=== PATIENT | female | born 1955 | race Caucasian/White ===

== ENCOUNTER 2016-09-02 12:47 | Observation (INO) ==
[2016-09-02 14:35] LABS: Basophils # 0.1 K/mcL (0.0-0.2); Eosinophils # 0.2 K/mcL (0.0-0.6); Eosinophils % 2.7 %; Hematocrit 45.9 % (35.3-44.9); Hemoglobin 14.8 g/dL (11.5-15.4); Immature Granulocytes % 0.3 % (0-4); Lymphocytes # 2.8 K/mcL (0.6-4.6); Lymphocytes % 35.5 %; Mean Corpuscular HGB Conc 32.2 g/dL (31.6-35.5); Mean Corpuscular Hemoglobin 28.3 pg (28.0-33.3); Mean Corpuscular Volume 87.8 fL (83.0-100.0); Mean Platelet Volume 9.5 fL (9.4-12.4); Monocytes # 0.7 K/mcL (0.0-1.3); Monocytes % 8.9 %; Neutrophils # 4.1 K/mcL (1.6-8.9); Platelet Count 550 K/mcL (140-400); Red Blood Count 5.23 M/mcL (3.82-4.97); Red Cell Distribution Width 12.4 % (11.5-14.5); Segmented Neutrophils % 51.6 %
[2016-09-02 14:47] LABS: BUN/Creatinine Ratio 10 (6-26); Blood Urea Nitrogen 10 mg/dL (7-20); Calcium 9.6 mg/dL (8.6-10.8); Carbon Dioxide 28 mEq/L (19-29); Chloride 95 mEq/L (98-109); Glucose 127 mg/dL (70-99); Osmolality,Calculated 279 (280-300); Potassium 3.9 mEq/L (3.5-4.5); Sodium 134 mEq/L (136-145); eGFR For African Americans > 60 (> 60); eGFR For Non-African Americans 57 (> 60)
--- NOTE | 2016-09-02 14:47 | Emergency Department Note ---
Disposition Clinical Impression: Shortness of breath, Elevated troponin Disposition: Admitted As Inpatient Condition: Fair Time of Disposition: 17:26 SOB HPI - General Chief Complaint: ED Shortness of Breath/Dyspnea Stated Complaint: SOB/High HR Time Seen by Provider: 09/02/16 14:02 Source: patient Mode of arrival: ambulatory Limitations: no limitations Nursing Notes Reviewed: Yes Vital Signs Reviewed: Yes - History of Present Illness Patient is a 61-year-old female with past medical history of hypertension, insomnia. She presents today due to shortness of breath. She states that she has been short of breath for the past month, it is suddenly worsened over the past day or 2. She is also been having issues with high blood pressure over the past month. Blood pressures have been as high as 180/90 at home. She was recently started on lisinopril 20 mg disease and her blood pressures are improving. However, this morning, she noted that she had a pulse in the 140s when she got up. She is having significant shortness of breath with walking. Denies any chest pain or discomfort, nausea, vomiting, fevers, abdominal pain, cough, URI symptoms. No cardiac history of stents, OK, stroke, no smoking history. - Related Data Home Medications Medication Instructions Recorded Confirmed Amitriptyline [Elavil] 25 mg PO HS 06/05/16 08/11/16 Duloxetine [Cymbalta] 30 mg PO DAILY 06/05/16 08/11/16 Estrogens, Conjugated [Premarin 1 appl VG 2XW 06/05/16 08/11/16 Cream] Fluticasone Propionate Nasal 1 spray NS DAILY PRN 06/05/16 08/11/16 [Flonase] Ibuprofen [Motrin] 600 mg PO Q8HR PRN 06/05/16 08/11/16 Omeprazole [PriLOSEC] 40 mg PO DAILY 06/05/16 08/11/16 HydrOXYzine Pamoate [Hydroxyzine 25 mg PO TID PRN 09/02/16 09/02/16 Pamoate] Hydrochlorothiazide 25 mg PO QAM 09/02/16 09/02/16 Lisinopril [Zestril] 20 mg PO QAM 09/02/16 09/02/16 Ranitidine HCl [Zantac] 300 mg PO HS 09/02/16 09/02/16 Allergies Allergy/AdvReac Type Severity Reaction Status Date / Time adhesive tape Allergy Rash Verified 08/11/16 12:47 Amoxicillin [From Augmentin] Allergy Headache Verified 08/11/16 12:47 ciprofloxacin [From Cipro] Allergy Nausea Verified 08/11/16 12:47 clavulanic acid Allergy Headache Verified 08/11/16 12:47 [From Augmentin] clindamycin Allergy Nausea Verified 08/11/16 12:47 codeine Allergy Itching Verified 08/11/16 12:47 hydrocortisone Allergy Rash Verified 08/11/16 12:47 [From Cortizone-10] Imipramine [From Tofranil] Allergy Rash Verified 08/11/16 12:47 metronidazole [From Metrogel] Allergy Itching Verified 08/11/16 12:47 Sulfa (Sulfonamide Allergy Rash Verified 08/11/16 12:47 Antibiotics) ultrasound gel Allergy Itching Uncoded 08/11/16 12:47 Constitutional: Denies: fever Eyes: Denies: eye pain ENT ED: Denies: ear pain Cardiovascular: Reports: dyspnea on exertion. Denies: chest pain, palpitations Respiratory: Reports: dyspnea. Denies: cough, wheezes, hemoptysis Gastrointestinal: Denies: as per HPI, abdominal pain, nausea, vomiting, diarrhea Genitourinary: Denies: urgency, dysuria, frequency, hematuria Musculoskeletal: Denies: back pain Integumentary: Denies: rash Neurological: Denies: headache Psychiatric: Denies: anxiety Endocrine: Reports: fatigue Past Medical History - Past Medical History Attestation: Yes The following information was validated with the patient. Medical history: Reports: arthritis, fibromyalgia, GERD, hepatitis, other Surgical history: Reports: cholecystectomy, orthopedic, other, other Psychiatric history: Reports: anxiety, depression - Social History Smoking Status: Former smoker Smokeless Tobacco Status: No Alcohol use: Reports: none Drug use: Reports: none Physical Exam - General Limitations: no limitations General appearance: alert, in no apparent distress - Head Head exam: atraumatic, normocephalic, normal inspection - Eye Eye exam: Present: normal appearance, PERRL, EOMI - ENT ENT exam: normal exam, normal oropharynx, mucous membranes moist - Neck Neck exam: Present: normal inspection, full ROM, trachea midline - Chest Chest inspection: Present: normal inspection, symmetric chest wall rise - Respiratory Respiratory exam: Present: normal lung sounds bilaterally - Cardiovascular Cardiovascular exam: Present: normal rhythm, tachycardia, normal heart sounds - Abdominal Exam Abdominal exam: Present: soft, Non-Tender. Absent: tenderness, distention, guarding, rebound, rigidity - Extremities Exam Extremities exam: Present: normal inspection, full ROM. Absent: tenderness, pedal edema - Back Exam Back exam: Present: normal inspection, full ROM. Absent: tenderness - Neurological Exam Neurological exam: Present: alert, oriented X3 - Psychiatric Psychiatric exam: Present: normal affect, normal mood - Skin Skin exam: Present: warm, dry, intact, normal color Course Course Narrative: Patient was tachycardic on presentation. Her oxygen saturation was also dipping down to 96% during conversation. Otherwise, she is not in any acute distress. The rest of her vitals were within normal limits. Physical exam shows clear lungs to auscultation bilaterally, heart tachycardic but regular rhythm, abdominal exam benign. Due to history of tachycardia, shortness of breath, clear lung exam, oxygen dipping down to 96%, EKG showing tachycardia with ST depression in V3, T-wave inversion in lead 3, there is concern for PE. We will obtain cardiac labs and a CTA to rule out PE. Patient was agreeable with this plan. 15:57 troponin elevated at 0.07. Patient given aspirin. Chest x-ray negative for any acute cardiopulmonary process. Currently waiting on CTA. 17:24 CTA was negative for PE. However, due to elevated troponin, continued shortness of breath, I am still concerned that the patient could have some other etiology such as pulmonary hypertension that could be causing her shortness of breath, nonspecific ST changes. I called cardiology and discussed the case, Dr. Marquez agreed admission for further trending of trops and echocardiogram was reasonable. WIll admit for further care. Chest X-Ray 09/02/16 13:37 IMPRESSION: No acute cardiopulmonary process. Stable chest x-ray. D/ / Rosalva Freeman MD / Rosalva Freeman MD Interpreting Provider: Rosalva Freeman MD Chest CTA 09/02/16 14:38 IMPRESSION: 1. No acute abnormalities are identified in the chest. Specifically, there are no findings of pulmonary embolism. 2. A few incidental findings above. D/ / Alessio Gonzalez MD / Alessio Gonzalez MD Interpreting Provider: Alessio Gonzalez MD Chest X-Ray 09/02/16 13:37 IMPRESSION: No acute cardiopulmonary process. Stable chest x-ray. D/ / Rosalva Freeman MD / Rosalva Freeman MD Interpreting Provider: Rosalva Freeman MD Vital Signs Temperature 97.9 F 09/02/16 12:55 Pulse Rate 110 09/02/16 12:55 Respiratory Rate 16 09/02/16 12:55 Blood Pressure 124/77 09/02/16 12:55 O2 Sat by Pulse Oximetry 98 09/02/16 12:55 Temperature 98.0 F 09/02/16 18:24 Pulse Rate 87 09/02/16 18:24 Respiratory Rate 16 09/02/16 18:24 Blood Pressure 139/82 09/02/16 18:24 O2 Sat by Pulse Oximetry 95 09/02/16 18:24 Oxygen Delivery Oxygen Delivery Room Air Shortness of Breath/Dyspnea - [facility] Narrative Medical decision making narrative: Patient was tachycardic on presentation. Her oxygen saturation was also dipping down to 96% during conversation. Otherwise, she is not in any acute distress. The rest of her vitals were within normal limits. Physical exam shows clear lungs to auscultation bilaterally, heart tachycardic but regular rhythm, abdominal exam benign. Due to history of tachycardia, shortness of breath, clear lung exam, oxygen dipping down to 96%, EKG showing tachycardia with ST depression in V3, T-wave inversion in lead 3, there is concern for PE. We will obtain cardiac labs and a CTA to rule out PE. Patient was agreeable with this plan. 15:57 troponin elevated at 0.07. Patient given aspirin. Chest x-ray negative for any acute cardiopulmonary process. Currently waiting on CTA. 17:24 CTA was negative for PE. However, due to elevated troponin, continued shortness of breath, I am still concerned that the patient could have some other etiology such as pulmonary hypertension that could be causing her shortness of breath, nonspecific ST changes. I called cardiology and discussed the case, Dr. Marquez agreed admission for further trending of trops and echocardiogram was reasonable. WIll admit for further care. - Medical Records Medical records reviewed: Yes I reviewed the patient's medical records. - Lab Data Lab results reviewed: Yes I reviewed the patient's lab results. Result diagrams: 09/02/16 14:15 09/02/16 14:15 Lab Results 09/02/16 09/02/16 09/02/16 Range/Units 14:15 14:15 14:15 WBC 7.8 (4.3-11.1) K/mcL RBC 5.23 H (3.82-4.97) M/mcL Hgb 14.8 (11.5-15.4) g/dL Hct 45.9 H (35.3-44.9) % MCV 87.8 (83.0-100.0) fL MCH 28.3 (28.0-33.3) pg MCHC 32.2 (31.6-35.5) g/dL RDW 12.4 (11.5-14.5) % Plt Count 550 H (140-400) K/mcL MPV 9.5 (9.4-12.4) fL Immature Gran % 0.3 (0-4) % Seg Neutrophils % 51.6 % Lymphocytes % 35.5 % Monocytes % 8.9 % Eosinophils % 2.7 % Basophils % 1.0 % Neutrophils # 4.1 (1.6-8.9) K/mcL Lymphocytes # 2.8 (0.6-4.6) K/mcL Monocytes # 0.7 (0.0-1.3) K/mcL Eosinophils # 0.2 (0.0-0.6) K/mcL Basophils # 0.1 (0.0-0.2) K/mcL Immature Plt Fraction 4.0 (1.1-6.1) % Sodium 134 L (136-145) mEq/L Potassium 3.9 (3.5-4.5) mEq/L Chloride 95 L (98-109) mEq/L Carbon Dioxide 28 (19-29) mEq/L BUN 10 (7-20) mg/dL Creatinine 1.00 (0.57-1.11) mg/dL Est GFR ( Amer) > 60 (> 60) Est GFR (Non-Af Amer) 57 L (> 60) BUN/Creatinine Ratio 10 (6-26) Glucose 127 H (70-99) mg/dL Calculated Osmolality 279 L (280-300) Calcium 9.6 (8.6-10.8) mg/dL Troponin I 0.07 H* (0-0.03) ng/mL B-Natriuretic Peptide (0-100) pg/mL 09/02/16 Range/Units 14:15 WBC (4.3-11.1) K/mcL RBC (3.82-4.97) M/mcL Hgb (11.5-15.4) g/dL Hct (35.3-44.9) % MCV (83.0-100.0) fL MCH (28.0-33.3) pg MCHC (31.6-35.5) g/dL RDW (11.5-14.5) % Plt Count (140-400) K/mcL MPV (9.4-12.4) fL Immature Gran % (0-4) % Seg Neutrophils % % Lymphocytes % % Monocytes % % Eosinophils % % Basophils % % Neutrophils # (1.6-8.9) K/mcL Lymphocytes # (0.6-4.6) K/mcL Monocytes # (0.0-1.3) K/mcL Eosinophils # (0.0-0.6) K/mcL Basophils # (0.0-0.2) K/mcL Immature Plt Fraction (1.1-6.1) % Sodium (136-145) mEq/L Potassium (3.5-4.5) mEq/L Chloride (98-109) mEq/L Carbon Dioxide (19-29) mEq/L BUN (7-20) mg/dL Creatinine (0.57-1.11) mg/dL Est GFR ( Amer) (> 60) Est GFR (Non-Af Amer) (> 60) BUN/Creatinine Ratio (6-26) Glucose (70-99) mg/dL Calculated Osmolality (280-300) Calcium (8.6-10.8) mg/dL Troponin I (0-0.03) ng/mL B-Natriuretic Peptide 11 (0-100) pg/mL - Radiology Data Radiology results reviewed: Yes I reviewed the patient's radiology results. Chest X-Ray 09/02/16 13:37 IMPRESSION: No acute cardiopulmonary process. Stable chest x-ray. D/ / Rsoalva Freeman MD / Rosalva Freeman MD Interpreting Provider: Rosalva Freeman MD Chest CTA 09/02/16 14:38 IMPRESSION: 1. No acute abnormalities are identified in the chest. Specifically, there are no findings of pulmonary embolism. 2. A few incidental findings above. D/ / Alessio Gonzalez MD / Alessio Gonzalez MD Interpreting Provider: Alessio Gonzalez MD - EKG Data EKG attestation: Yes I reviewed and interpreted this EKG. EKG results narrative: 09/02/2016 at 12:59. Sinus tachycardia. Rate 102. [place] interval 111. QTc 352. QRS 72. Normal axis. T-wave inversion in lead 3. ST depression in lead V3, T-wave inversion in lead V3. Also ST depression and T-wave inversion in V4, V5. Posterior EKG 09/02/2016 at 1405. Sinus tachycardia. Rate 102. [place] interval 113. QRS 79. QTC 381. No acute ST elevation or depression. S.B.A.R. - S.B.A.R. Situation: Demographics, MOA Background: Presenting Complaint, Relevant PMH, Meds, & Allergies Assessment: Vital Signs, Course and respsone to treatment, Exam Concerns, Patient/Family Expectation, Pertinant Lab Results, Outstanding Labs Recommendation: Barrier(s) to disposition, Recommendation based on pending studies, treatments, or consults S.B.A.R. Report Given to: Dr. Annamaria Mayorga Repor Time: 17:26 Attestation Statement - Attestation Attestation: I examined this patient and my medical decision-making was reviewed with the MIDWIFE/PA/Advanced Practice Nurse/Resident Physician. I agree with the documented findings, disposition and treatment plan as described except to the extent set forth below. Patient to the emergency department complaining of shortness of breath and high pulse. Sensation is recently started on high blood pressure medications. States she increased her lisinopril to 20 on her own. Her heart rate is now running high. He does not feel well. Lungs clear to auscultation. Heart tachycardia and regular. Plan. Cardiac workup. Cardiac workup that showed an elevated troponin. She is given aspirin. She is not having any chest pain. CTA to rule out PE. It is negative for PE. She will be admitted for further cardiac workup and imaging.
[2016-09-02] MEDS ORDERED: Aspirin 325 MG TABLET PO ONE (15:01)
[2016-09-02] MEDS ORDERED: 0.9 % Sodium Chloride 1,000 ML IVC ONE (15:58)
--- NOTE | 2016-09-02 19:57 | Electrocardiograph Report ---
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
[2016-09-02] MEDS ORDERED: Naloxone 0.4 MG/ML INJ IVP PRN (20:45)
[2016-09-02] MEDS ORDERED: Ondansetron 4 MG/2 ML VIAL IVP PRN (20:45)
[2016-09-02] MEDS ORDERED: hydrOXYzine pamoate 25 MG CAPSULE PO PRN (20:52)
[2016-09-02] MEDS ORDERED: Famotidine 20 MG TABLET PO SCH (21:00)
--- NOTE | 2016-09-02 21:06 | Internal Med History&Physical ---
<Isidra Roper - Last Filed: 09/02/16 22:10> Date of Encounter: 09/02/16 Time of Encounter: 20:00 Assessment and Plan (1) Elevated troponin Status: Acute 1 patient has been experiencing increasing shortness of breath with exertion as well as intermittent chest pain over the past month. First cardiac troponin in the ED was 0.07, patient was given aspirin case was discussed with Dr. Smith recommended admission and continued cycling of her troponins 2 Make NPO after midnight for possible stress in am. No caffeine or BB (2) Shortness of breath Status: Acute 1 patient has been using increasing shortness of breath and tachycardia for approximately 2 weeks. CTA performed which was negative for pulmonary embolism Patient's first cardiac troponin was elevated at 0.07 Will obtain cardiac echo will possibility of cardiac involvement 2 continue with oxygen to maintain SPO2 greater than 92% 3 continuous cardiac monitoring (3) STEFFEN (obstructive sleep apnea) Status: Acute 1 CPAP as needed at night (4) HTN (hypertension) Status: Acute 1 continue with lisinopril and hydrochlorothiazide goal is to maintain systolic less than 140 Qualifiers: Hypertension type: essential hypertension Qualified Code(s): I10 - Essential (primary) hypertension (5) DVT prophylaxis Status: Acute 1 [facility] Internal Medicine - H&P: HPI Chief complaint: SOB tachycardia Admitted From: Emergency Dept Plans for Post Hospital Care: Home History of present illness: Ms. Yun is a 61 year old female past medical history of hypertension and obstructive sleep apnea insomnia anxiety GERD. Agree the patient she has been experiencing increasing shortness of breath as well as intermittent chest pressure that has been occurring off and on for the past 3 weeks. The past 2 days she has noticed increased shortness of breath particularly on exertion. She also has been monitoring her blood pressure and heart rate at home and over the past month has noticed increase in her heart rate during ambulation. She states chest pressure this midsternal occurs mostly when she is at rest and resolves on its own. This morning she noted that she had a pulse in the 140s and was experiencing significant shortness of breath. She denies any chest pain discomfort nausea vomiting fever abdominal pains prior to returning distress of breath. She does not have a cardiac history she was a previous smoker her sister of MA at age 37 mother has a cardiac history of atrial fibrillation. 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 She presented to the ER with the above complaints. According to ER records upon presentation patient's heart rate was 110 her blood pressure was 124/77. Oxygen saturation was 98% but would drop down to 9596% EKG just shows tachycardia with some ST depression in V3 and T-wave inversion in V4 56. CTA was obtained to rule out possible PE which was negative. Troponin was elevated at 0.07 she was given aspirin. According to ER documentation the case was discussed with Dr. Smith who agreed with admission and further trending of troponins and echocardiogram. Patient has been admitted for further workup and evaluation.Presently the patient denies any CP or SOB, lung sounds are clear, regular heart rate, no rubs murmur or gallops noted . Presently hemodynmaically stable. Discussed case with Dr Fry who agrees with plan. Past Med Surg Social Fam HX - Past Medical History Medical history: arthritis, fibromyalgia, GERD, hepatitis, other Psychiatric history: anxiety, depression - Past Surgical History Surgical History: cholecystectomy, orthopedic, other, other - Social History Smoking Status: Former smoker Smokeless Tobacco Status: No Alcohol use: none Drug use: none - Family History Mother Living Status: Still Living Hx Family Cardiac Disorders: Yes (pace maker (irregular heart beat)) Father Living Status: Still Living Hx Family Respiratory Disorders: Yes Hx Family Cancer: Yes (lung cancer) Internal Medicine - H&P: Meds Amitriptyline [Elavil] 25 mg PO HS 06/05/16 [History] Duloxetine [Cymbalta] 30 mg PO DAILY 06/05/16 [History] Estrogens, Conjugated [Premarin Cream] 1 appl VG 2XW 06/05/16 [History] Fluticasone Propionate Nasal [Flonase] 1 spray NS DAILY PRN 06/05/16 [History] Ibuprofen [Motrin] 600 mg PO Q8HR PRN 06/05/16 [History] Omeprazole [PriLOSEC] 40 mg PO QAM 06/05/16 [History] HydrOXYzine Pamoate [Hydroxyzine Pamoate] 25 mg PO TID PRN 09/02/16 [History] Hydrochlorothiazide 25 mg PO QAM 09/02/16 [History] Lisinopril [Zestril] 20 mg PO QAM 09/02/16 [History] Ranitidine HCl [Zantac] 300 mg PO HS 09/02/16 [History] Aspirin 81 mg PO DAILY #30 tab.chew 09/03/16 [Rx] Atorvastatin [Lipitor] 40 mg PO HS #30 tablet 09/03/16 [Rx] Clopidogrel [Plavix] 75 mg PO DAILY #30 tablet 09/03/16 [Rx] HYDROcodone/Acet 5/325 mg [Rhine 5-325 mg] 1 tab PO Q6H PRN #15 tab 09/03/16 [Rx ] Metoprolol [Lopressor] 25 mg PO BID #60 tablet 09/03/16 [Rx] Allergies adhesive tape Allergy (Verified 08/11/16 12:47) Rash Amoxicillin [From Augmentin] Allergy (Verified 08/11/16 12:47) Headache ciprofloxacin [From Cipro] Allergy (Verified 08/11/16 12:47) Nausea clavulanic acid [From Augmentin] Allergy (Verified 08/11/16 12:47) Headache clindamycin Allergy (Verified 08/11/16 12:47) Nausea codeine Allergy (Verified 08/11/16 12:47) Itching hydrocortisone [From Cortizone-10] Allergy (Verified 08/11/16 12:47) Rash Imipramine [From Tofranil] Allergy (Verified 08/11/16 12:47) Rash metronidazole [From Metrogel] Allergy (Verified 08/11/16 12:47) Itching Sulfa (Sulfonamide Antibiotics) Allergy (Verified 08/11/16 12:47) Rash ultrasound gel Allergy (Uncoded 08/11/16 12:47) Itching All Systems PM: A 10-system review of systems was performed and is negative for pertinent findings except as documented above in the HPI. - Constitutional Constitutional: no chills, no fever(s), no night sweats - EENT Eyes: no change in vision, no discharge, no pain, no photophobia - Cardiovascular Cardiovascular ROS IM: chest pain, dyspnea, dyspnea on exertion, no diaphoresis , no lightheadedness, no palpitations, no syncope - Respiratory Respiratory: no cough, no dyspnea, no wheezing, no excessive phlegm production - Gastrointestinal Gastrointestinal: no abdominal pain, no diarrhea, no hematemesis, no hematochezia, no melena, no nausea, no vomiting - Genitourinary Genitourinary: no change in urinary stream, no dysuria, no flank pain, no hematuria - Musculoskeletal Musculoskeletal ROS IM: no numbness, no tingling - Integumentary Integumentary IM: no rash, no unusual bruising - Neurological Neurological ROS: no confusion, no convulsions, no focal weakness, no numbness, no tingling, no tremor(s) - Constitutional Vitals: Temp Pulse Resp BP Pulse Ox 98.0 F 87 16 139/82 95 09/02/16 18:24 09/02/16 18:24 09/02/16 18:24 09/02/16 18:24 09/02/16 18:24 General appearance: Present: A&O X 3 - Head Head exam: Present: atraumatic, normocephalic - Eye Eye exam: Present: PERRL, conjuntiva pink, sclera anicteric Pupils: Present: PERRL - Neck Neck exam general surgery: Present: supple, trachea midline. Absent: lymphadenopathy - Respiratory Respiratory exam: Present: CTAB. Absent: accessory muscle use, rales, rhonchi, wheezes - Cardiovascular Cardiovascular exam: Present: RRR, +S1, +S2. Absent: diastolic murmur, gallop, rubs, systolic murmur - GI/Abdominal GI/Abdominal exam: Present: normal bowel sounds, soft, no peritoneal signs. Absent: distended, tenderness - Extremities Exam Extremities exam: Present: warm, radial pulses palpable and symetrical. Absent : calf tenderness, cyanotic, pedal edema - Neurological Exam Neurological exam: Present: CN II-XII intact, oriented X3, no focal deficits. Absent: pronater drift, facial droop, speech deficit - Skin Skin exam: Present: dry, intact Internal Med - H&P Results - Labs CBC & Chem 7: 09/02/16 14:15 09/02/16 14:15 - EKG Data EKG comments: 09/02/16 21:[address] Fry. Noted ST depression in V# with T wave inversion in leads V4-6 - Diagnostic Studies Chest x-ray Additional comments: Chest X-Ray 09/02/16 13:37 IMPRESSION: No acute cardiopulmonary process. Stable chest x-ray. D/ / Rosalva Freeman MD / Rosalva Freeman MD Interpreting Provider: Rosalva Freeman MD Chest CTA 09/02/16 14:38 IMPRESSION: 1. No acute abnormalities are identified in the chest. Specifically, there are no findings of pulmonary embolism. 2. A few incidental findings above. D/ / Alessio Gonzalez MD / Alessio Gonzalez MD Interpreting Provider: Alessio Gonzalez MD <Pavel Elise R - Last Filed: 09/04/16 02:06> Internal Medicine - H&P: HPI History of present illness: Ms. Yun is a 61 year old female All Systems PM: A 10-system review of systems was performed and is negative for pertinent findings except as documented above in the HPI. - Constitutional Vitals: Temp Pulse Resp BP Pulse Ox 97.7 F 67 17 109/65 96 09/03/16 15:10 09/03/16 16:30 09/03/16 16:30 09/03/16 16:30 09/03/16 16:30 Internal Med - H&P Results - Labs CBC & Chem 7: 09/03/16 04:04 09/03/16 04:04 Labs: Short CBC 09/03/16 Range/Units 04:04 WBC 7.7 (4.3-11.1) K/mcL Hgb 13.6 (11.5-15.4) g/dL Hct 42.1 (35.3-44.9) % Plt Count 440 H (140-400) K/mcL Neutrophils # 3.5 (1.6-8.9) K/mcL BMP 09/03/16 04:04 Sodium 138 Potassium 3.9 Chloride 99 Carbon Dioxide 29 BUN 12 Creatinine 0.91 Glucose 102 H Calcium 9.0 Cardiac Enzymes 09/03/16 Range/Units 04:04 Troponin I 0.06 H* (0-0.03) ng/mL Liver Function 09/03/16 Range/Units 04:04 Total Bilirubin 0.4 (0.2-1.2) mg/dL Direct Bilirubin 0.1 (0.0-0.5) mg/dL AST 21 (5-34) Units/L ALT 20 (0-55) Units/L Alkaline Phosphatase 115 (38-126) Units/L Albumin 3.5 (3.5-5.0) g/dL - Attending Attestation I examined this patient and my medical decision-making was reviewed with the [employer] ATTENDANT/ Advanced Practice Nurse. I agree with the documented findings, disposition and treatment plan as described except to the extent set forth below. 61 Y/F with intermittent shortness of breath and chest pressure. EKG showed T- wave inversions in V3 to V6, with dynamic changes. CXR and CTA chest are negative. Troponin 0.07. ER provider discussed with nc manager, who did not recommend anticoagulation at this time. O/E: Cardiac: RRR; Lungs: Bilateral basal crackles heard. A/P: Cardiology consult; aspirin; trend troponins.
[2016-09-03 05:36] LABS: Basophils # 0.1 K/mcL (0.0-0.2); Basophils % 0.9 %; Eosinophils # 0.3 K/mcL (0.0-0.6); Eosinophils % 4.1 %; Hematocrit 42.1 % (35.3-44.9); Hemoglobin 13.6 g/dL (11.5-15.4); Immature Granulocytes % 0.3 % (0-4); Lymphocytes # 3.1 K/mcL (0.6-4.6); Lymphocytes % 39.5 %; Mean Corpuscular HGB Conc 32.3 g/dL (31.6-35.5); Mean Corpuscular Hemoglobin 28.4 pg (28.0-33.3); Mean Corpuscular Volume 87.9 fL (83.0-100.0); Mean Platelet Volume 9.8 fL (9.4-12.4); Monocytes # 0.8 K/mcL (0.0-1.3); Monocytes % 10.6 %; Neutrophils # 3.5 K/mcL (1.6-8.9); Platelet Count 440 K/mcL (140-400); Red Blood Count 4.79 M/mcL (3.82-4.97); Red Cell Distribution Width 12.3 % (11.5-14.5); Segmented Neutrophils % 44.6 %
[2016-09-03 05:50] LABS: BUN/Creatinine Ratio 13 (6-26); Blood Urea Nitrogen 12 mg/dL (7-20); Carbon Dioxide 29 mEq/L (19-29); Chloride 99 mEq/L (98-109); Chol/HDL Ratio 3.9 (0-4.9); Cholesterol 201 mg/dL (< 200); Glucose 102 mg/dL (70-99); HDL Cholesterol 52 mg/dL (40-59); LDL Cholesterol,Calculated 110 mg/dL (0-99); Osmolality,Calculated 286 (280-300); Potassium 3.9 mEq/L (3.5-4.5); Sodium 138 mEq/L (136-145); Triglycerides 196 mg/dL (< 150); eGFR For African Americans > 60 (> 60); eGFR For Non-African Americans > 60 (> 60)
[2016-09-03] MEDS ORDERED: *HR* Enoxaparin 40 MG/0.4 ML SYRINGE SQ SCH (07:00)
[2016-09-03] MEDS ORDERED: hydroCHLOROthiazide 25 MG TABLET PO SCH (09:00)
[2016-09-03] MEDS ORDERED: Lisinopril 20 MG TABLET PO SCH (09:00)
[2016-09-03] MEDS ORDERED: Aspirin 81 MG TAB.CHEW PO SCH (09:00)
--- NOTE | 2016-09-03 10:07 | Cardiology Consult Note ---
Date of Encounter: 09/03/16 Time of Encounter: 09:45 Assessment and Plan (1) NSTEMI (non-ST elevated myocardial infarction) Current Visit: Yes Status: Acute Patient complains of intermittent non anginal chest pain x3 weeks duration. Not associated with activity. Described as tightness, substernal sometimes located at left upper back, non radiating. EKG showed ST depressions in leads I-III, T wave inversions in leads V3-V6, transient changes. JULIÁN score: 3 Peak troponin .07, trending down. 30 pack year hx of smoking, quit in 2009. Triglycerides and LDL elevated, no cardiac Hx. Plan: Echo pending. ASA, simvastatin, metoprolol, Lovenox Plan for [facility] later today. (2) Elevated troponin Current Visit: Yes Status: Acute peak troponin .07, trending down. Plan as above. (3) Shortness of breath Current Visit: Yes Status: Acute increasing shortness of breath and tachycardia x2 weeks. Patient does have a 30 pack year smoking Hx, quit in 2009. She states she did have PFTs done outpatient by her PCP which she was told were normal. CTA negative for PE. Echo pending. continue cardiac monitoring (4) STEFFEN (obstructive sleep apnea) Current Visit: Yes Status: Acute Patient is compliant with CPAP at night. (5) HTN (hypertension) Current Visit: Yes Status: Acute BP controlled at this time. Continue Lisinopril and HCTZ Qualifiers: Hypertension type: essential hypertension Qualified Code(s): I10 - Essential (primary) hypertension Discussion w patient/family: The assessment and plan as outlined above was discussed with the patient and/or family members who expressed understanding and agreement. All questions were answered. Thank you for involving us in the care of your patient. Please call with any questions. History of Present Illness Consult date: 09/03/16 Requesting physician: Pavel Elise Consult reason: non anginal chest pain Chief complaint: chest pain and SOB History of present illness: Ms. Yun is a 61 year old female withPMHx of HTN, STEFFEN (compliant with CPAP) , insominia, anxiety, GERD, fibromyalgia. Patient was admitted to hospital yesterday with CC of non anginal CP x3 weeks duration. Her chest pain comes and goes, located Left upper back and sometimes sub sternal. She describes this chest pain as more of a tightness. Denies having a sharp/stabbing feeling. It is not associated with exertion or rest, and happens randomly. Patient also complains of increased shortness of breath compared to normal with simple activities such as walking across the parking lot. She denies any increased recent stress in her life. Currently on exam, she denies shortness of breath or current chest pain. Past Med Surg Social Fam HX - Past Medical History Medical history: arthritis, fibromyalgia, GERD, hepatitis, other Psychiatric history: anxiety, depression - Past Surgical History Surgical History: cholecystectomy, orthopedic, other, other - Social History Smoking Status: Former smoker Smokeless Tobacco Status: No Alcohol use: none Drug use: none - Family History Mother Living Status: Still Living Hx Family Cardiac Disorders: Yes (pace maker (irregular heart beat)) Father Living Status: Still Living Hx Family Respiratory Disorders: Yes Hx Family Cancer: Yes (lung cancer) Medications and Allergies Amitriptyline [Elavil] 25 mg PO HS 06/05/16 [History] Duloxetine [Cymbalta] 30 mg PO DAILY 06/05/16 [History] Estrogens, Conjugated [Premarin Cream] 1 appl VG 2XW 06/05/16 [History] Fluticasone Propionate Nasal [Flonase] 1 spray NS DAILY PRN 06/05/16 [History] Ibuprofen [Motrin] 600 mg PO Q8HR PRN 06/05/16 [History] Omeprazole [PriLOSEC] 40 mg PO QAM 06/05/16 [History] HydrOXYzine Pamoate [Hydroxyzine Pamoate] 25 mg PO TID PRN 09/02/16 [History] Hydrochlorothiazide 25 mg PO QAM 09/02/16 [History] Lisinopril [Zestril] 20 mg PO QAM 09/02/16 [History] Ranitidine HCl [Zantac] 300 mg PO HS 09/02/16 [History] Allergies adhesive tape Allergy (Verified 08/11/16 12:47) Rash Amoxicillin [From Augmentin] Allergy (Verified 08/11/16 12:47) Headache ciprofloxacin [From Cipro] Allergy (Verified 08/11/16 12:47) Nausea clavulanic acid [From Augmentin] Allergy (Verified 08/11/16 12:47) Headache clindamycin Allergy (Verified 08/11/16 12:47) Nausea codeine Allergy (Verified 08/11/16 12:47) Itching hydrocortisone [From Cortizone-10] Allergy (Verified 08/11/16 12:47) Rash Imipramine [From Tofranil] Allergy (Verified 08/11/16 12:47) Rash metronidazole [From Metrogel] Allergy (Verified 08/11/16 12:47) Itching Sulfa (Sulfonamide Antibiotics) Allergy (Verified 08/11/16 12:47) Rash ultrasound gel Allergy (Uncoded 08/11/16 12:47) Itching All Systems Review: A 10-system review of systems was performed and is negative for pertinent findings except as documented above in the HPI. - Constitutional Constitutional: chills, snoring, no fever(s), no headache(s), no lethargy - Cardiovascular Cardiovascular: as per HPI - Respiratory Respiratory: dyspnea, no cough, no wheezing - Gastrointestinal Gastrointestinal: no abdominal pain, no coffee ground emesis, no constipation - Neurological Neurological: no dizziness Physical Examination Vital Signs, Last 4 Hours Temp Pulse Resp BP Pulse Ox 09/03/16 08:15 96 09/03/16 07:09 98.1 F 87 14 129/87 96 General: Conversant, No Apparent Distress HEENT: Atraumatic, Normocephaly Neck: No JVD Cardiac: Reg Rate and Rhythm, Normal S1 and S2 Lungs: Normal Breath Sounds, No Wheeze, Rales, Rhonchi Neuro: Alert and responsive, No focal deficits noted Abdomen: Soft, Non-Tender Extremities: No Cyanosis, No Edema Results 09/03/16 04:04 09/03/16 04:04 Lab Results 09/02/16 09/03/16 09/03/16 21:26 04:04 04:04 WBC 7.7 Hgb 13.6 Hct 42.1 Plt Count 440 H Sodium Potassium Chloride Carbon Dioxide BUN Creatinine Glucose Calcium Troponin I 0.06 H* 0.06 H* 09/03/16 04:04 WBC Hgb Hct Plt Count Sodium 138 Potassium 3.9 Chloride 99 Carbon Dioxide 29 BUN 12 Creatinine 0.91 Glucose 102 H Calcium 9.0 Troponin I Consult Discharge Plan - Plan Referrals: Rhys Rausch MD [Primary Care Provider] - 09/11/16 3:15 pm
[2016-09-03 11:24] LABS: Alanine Aminotransferase 20 Units/L (0-55); Albumin 3.5 g/dL (3.5-5.0); Albumin/Globulin Ratio 1.1 (1.1-2.2); Alkaline Phosphatase 115 Units/L (38-126); Aspartate Amino Transferase 21 Units/L (5-34); Bilirubin,Direct 0.1 mg/dL (0.0-0.5); Bilirubin,Indirect 0.3 mg/dL (0.0-1.2); Bilirubin,Total 0.4 mg/dL (0.2-1.2); Globulin 3.2 g/dL (2.4-3.5); Total Protein 6.7 g/dL (6.0-8.3)
[2016-09-03] MEDS: Acetaminophen 325 MG TABLET PO PRN ×2 (11:54→18:11)
--- NOTE | 2016-09-03 13:03 | ECHO - Doppler Report ---
Echocardiogram Name: Kellee Yun Date of Study: 09/03/2016 Date: 1955 Ht: 66.0 in Medical Record#: [id number] Age: 61 Wt: 143.0 lb Gender: Female BSA: 1.73 Order #: [id number] Location: [facility] Room #: 3B37 Reading Physician: New Krishna DO, YUNI, MICHEAL SHARMA Gradall Operator: Ordering Physician: Isidra Roper CNP Primary Physician: Rhys Rausch M.D. Indications: Chest pain Impressions: LVEF 60-65%. Normal LV chamber size, wall thickness and function. Mild left ventricular diastolic dysfunction. Normal right ventricular structure and function. Unable to estimate RVSP due to lack of TR jet. No significant valvular dysfunction. Left Ventricular Wall Motion: Rest Echo Findings All wall segments showed normal motion. Findings: Study Quality * Technically adequate exam. ECG Findings * Normal sinus rhythm. Left Ventricle * LVEF 60-65%. * Normal LV chamber size, wall thickness and function. * Mild left ventricular diastolic dysfunction. Right Ventricle * Normal right ventricular structure and function. Left Atrium * Normal left atrial size. Right Atrium * Normal right atrial size. Interatrial Septum * Interatrial septum not well evaluated. Aortic Valve * Trileaflet aortic valve with normal function. * No aortic regurgitation. * No aortic stenosis. Mitral Valve * Normal mitral valve structure and function. * No mitral regurgitation. * No mitral stenosis. Tricuspid Valve * Normal tricuspid valve structure and function. * No significant tricuspid regurgitation. * Unable to estimate RVSP due to lack of TR jet. Pulmonic Valve * Pulmonic valve not well visualized. * No pulmonic regurgitation. Aorta * Normally sized aortic root. Pericardium * The pericardium appears normal. IVC * Normal IVC dimensions and inspiratory collapse. Pulmonary Artery * Normal visualized portions of the main pulmonary artery. History Hypertension Family History of CAD 12/03/15 a Previous Echo was performed. Measurements: BP: 129/ 87 2D Normal Values RVIDd: 2.60 cm <2.7 cm IVSd: 1.20 cm 0.6 - 1.0 cm LVIDd: 3.90 cm 3.7 - 5.6 cm LVPWd: 1.00 cm 0.6 - 1.1 cm LVIDs: 2.70 cm 1.5 - 3.6 cm AO: 2.40 cm < 4.0 cm LA: 2.50 cm 2.0 - 4.0cm %FS: 30.80 cm >25 % LA volume: 13 Mitral Valve Peak E:.63 m/sec Peak A:.70 m/sec E/A Ratio:0.9 Peak E' Lat Nikhil:9.85 cm/s Peak E' Med Nikhil:6.73 cm/s E/E' Lat Ratio:6.4 E/E' Med Ratio:9.4 Tricuspid Valve TV Regurg Peak Grad: 5.00mmHg TV Regurg Peak Nikhil: 1.15m/sec Updated by New Krishna DO, FACAnnalisa, ZACHARY, MICHEAL on 09/03/2016 12:57:39 PM electronically signed on 09/03/2016 12:58:40 PM with status of Final Wall Motion Vergara: 1=Normal, 2=Hypokinesis, 3=Akinesis, 4=Dyskinesis, 5=Aneurysmal, 6=Hyperkinetic, X=Not Visualized (Blank)=Missing
--- NOTE | 2016-09-03 13:13 | Electrocardiograph Report ---
[address] [place] [address] Test Date: 2016-09-02 Pat Name: Kellee Yun Department: 102 Room: 3B37 Gender: F Buttonhole Maker: : 1955 Requested By: Isidra Roper Order Number: [id number] Reading MD: Alon Machado MD Measurements Intervals [place] Rate: 102 P: 37 KS: 111 QRS: 52 QRSD: 72 T: -14 QT: 293 QTc: 352 Interpretive Statements SINUS TACHYCARDIA WITH SHORT [place] INTERVAL ANTEROLATERAL ISCHEMIA Electronically Signed On 09-03-2016 13:11:21 EDT by Alon Machado MD
[2016-09-03] MEDS ORDERED: Verapamil 5 MG/2 ML VIAL ONE (13:47)
[2016-09-03] MEDS ORDERED: Heparin 1,000 UNITS/500 mL NS 500 ML ONE (13:48)
[2016-09-03] MEDS ORDERED: *HR* Heparin 10,000 UNIT/10 ML VIAL ONE (13:48)
[2016-09-03] MEDS ORDERED: Nitroglycerin 1,000 MCG/10 ML VIAL IV ONE (13:48)
[2016-09-03] MEDS ORDERED: 0.9 % Sodium Chloride 1,000 ML ONE ×2 (13:48→14:03)
[2016-09-03] MEDS ORDERED: *HR* Midazolam HCl 2 MG/2 ML VIAL ONE (14:02)
[2016-09-03] MEDS ORDERED: *HR* FentaNYL (PF) 100 MCG/2 ML VIAL ONE (14:02)
[2016-09-03 14:05] LABS: INR 1.1; Prothrombin Time 11.8 Seconds (9.4-12.1)
--- NOTE | 2016-09-03 14:30 | Pre-Sedation Evaluation ---
Pre-sedation evaluation - Pre-sedation checklist Date of procedure: 09/03/16 Procedure: Left heart cath Recent Vitals: Last Vital Signs Temp 98.1 F 09/03/16 11:18 Pulse 90 09/03/16 11:18 Resp 14 09/03/16 11:18 BP 134/84 09/03/16 11:18 Pulse Ox 95 09/03/16 11:18 H&P (including ROS) documented in medical record: Yes Previous reaction to sedatives/anesthetics: No Dietary Status: NPO after Midnight Dentition: No loose teeth or bridges ASA Classification *see protocol: CLASS II-Mild systemic disease Plan of Care: Pt appropriate candidate for procedure/moderate/conscious sedation , Risks/benefits of procedure/sedation discussed w/ patient/family
--- NOTE | 2016-09-03 15:06 | Event Note ---
Date of Encounter: 09/03/16 Time of Encounter: 15:05 - Cardiology Event Note Mild troponin elevation, dynamic ECG changes. TTE: EF 60-65%, mild LVDD, normal wall motion LHC: mild, non-obstructive CAD. 15% pLAD, 15% mLCx, 15% pRCA. ? microvascular event. Recommend: Plavix 75 mg daily x1 month. Continue asa, statin, and betablocker. Education provided regarding care of right radial cath site. Follow-up with [facility] in 1-2 weeks, appointment coordinate with office via eCW. Discussed and reviewed with Dr. Marquez, Cardiology will sign-off. Plan communicated with primary service.
--- NOTE | 2016-09-03 16:15 | Discharge Summary ---
Date of Encounter: 09/03/16 Time of Encounter: 15:00 - Discharge Diagnosis (1) Elevated troponin Priority: Primary Status: Acute Comments: Unclear causation but given that she had EKG changes, consistent with an NSTEMI. Heart catheter revealing mild, nonobstructive CAD. Started on aspirin , beta jose, statin and will give Plavix 1 month. (2) NSTEMI (non-ST elevated myocardial infarction) Priority: Primary Status: Suspected (3) Shortness of breath Priority: Primary Status: Resolved Comments: Patient denies shortness of breath above her normal throughout this admission. Chest x-ray negative. Chest CT negative for acute processes. (4) Hyperlipidemia Priority: Secondary Status: Chronic Comments: Statin initiated and patient educated on low cholesterol diet (5) STEFFEN (obstructive sleep apnea) Priority: Secondary Status: Chronic (6) HTN (hypertension) Priority: Secondary Status: Chronic Comments: Controlled, beta jose added to her regimen. Follow-up outpatient. Qualifiers: Hypertension type: essential hypertension Qualified Code(s): I10 - Essential (primary) hypertension (7) DVT prophylaxis Priority: Primary Status: Acute Comments: Subcutaneous Lovenox while admitted - Discharge Medications Prescriptions: Aspirin 81 mg PO DAILY #30 tab.chew Atorvastatin [Lipitor] 40 mg PO HS #30 tablet Clopidogrel [Plavix] 75 mg PO DAILY #30 tablet Metoprolol [Lopressor] 25 mg PO BID #60 tablet Home Medications: Amitriptyline [Elavil] 25 mg PO HS 06/05/16 [History] Duloxetine [Cymbalta] 30 mg PO DAILY 06/05/16 [History] Estrogens, Conjugated [Premarin Cream] 1 appl VG 2XW 06/05/16 [History] Fluticasone Propionate Nasal [Flonase] 1 spray NS DAILY PRN 06/05/16 [History] Ibuprofen [Motrin] 600 mg PO Q8HR PRN 06/05/16 [History] Omeprazole [PriLOSEC] 40 mg PO QAM 06/05/16 [History] HydrOXYzine Pamoate [Hydroxyzine Pamoate] 25 mg PO TID PRN 09/02/16 [History] Hydrochlorothiazide 25 mg PO QAM 09/02/16 [History] Lisinopril [Zestril] 20 mg PO QAM 09/02/16 [History] Ranitidine HCl [Zantac] 300 mg PO HS 09/02/16 [History] Aspirin 81 mg PO DAILY #30 tab.chew 09/03/16 [Rx] Atorvastatin [Lipitor] 40 mg PO HS #30 tablet 09/03/16 [Rx] Clopidogrel [Plavix] 75 mg PO DAILY #30 tablet 09/03/16 [Rx] Metoprolol [Lopressor] 25 mg PO BID #60 tablet 09/03/16 [Rx] Allergies/Adverse Reactions: Allergies adhesive tape Allergy (Verified 08/11/16 12:47) Rash Amoxicillin [From Augmentin] Allergy (Verified 08/11/16 12:47) Headache ciprofloxacin [From Cipro] Allergy (Verified 08/11/16 12:47) Nausea clavulanic acid [From Augmentin] Allergy (Verified 08/11/16 12:47) Headache clindamycin Allergy (Verified 08/11/16 12:47) Nausea codeine Allergy (Verified 08/11/16 12:47) Itching hydrocortisone [From Cortizone-10] Allergy (Verified 08/11/16 12:47) Rash Imipramine [From Tofranil] Allergy (Verified 08/11/16 12:47) Rash metronidazole [From Metrogel] Allergy (Verified 08/11/16 12:47) Itching Sulfa (Sulfonamide Antibiotics) Allergy (Verified 08/11/16 12:47) Rash ultrasound gel Allergy (Uncoded 08/11/16 12:47) Itching Procedures/tests Complete & Pending: Procedures Performed prior 72 hours Category Date Time Status CL Cardiac Catheterization [CL] Routine Brakes Inspector 09/03/16 11:02 Ordered ECG 12 lead ECG [ECG] AM 0600 Y 09/03/16 06:00 Completed EV echocardiogram Routine Y 09/03/16 20:50 Completed Date of admission: 09/02/16 17:39 Primary care physician: Rhys Rausch MD Consults: 09/03/16 11:48 Consult to Cardiac Rehabilitation-Phase1 [CONS] Routine Comment: Reason for Consult: NSTEMI Call Completed: No Discharging clinician: Lucia Mcknight Anticipated date of discharge: 09/03/16 - Patient Status Disposition: Home, Self-Care Condition: Fair Functional capacity at discharge: independent ambulation Overall status at discharge: patient is back to baseline - Discharge Instructions Follow Up With: Rhys Rausch MD [Primary Care Provider] - 09/11/16 3:15 pm [facility] [Provider Group] Additional Instructions: Follow-up with primary care provider as scheduled, follow-up with cardiology in 2-3 weeks - Diet and Activity Activity: increase activity as tolerated Diet: low fat, low cholesterol, low salt diet Hospital course: Ms. Yun is a 61 year old female with past medical history of hypertension, STEFFEN, insomnia, anxiety, GERD, former tobacco abuse. Patient presented to the emergency depart chief complaint increasing shortness of breath with intermittent chest pressure on and off for 3 weeks. Patient sitting on the 2 days prior to presentation, she noticed increased shortness of breath that was worsened with exertion. Patient also stating that she has been monitoring her blood pressure and heart rate at home over the past month and has noticed increase in heart rate with ambulation. Patient stated the chest pressure was midsternally located and occurs mostly at rest and resolves on its own. On the morning of presentation, she noted her pulse to be in the 140s while at home and was associated with significant shortness of breath. Patient denied any chest pain, nausea, vomiting, fever. Patient did endorse increased personal stressors. Workup in the emergency department revealing acute ECG changes with tachycardia and some ST depression in V3 and T-wave inversion in V4 5 and 6. Chest x-ray negative for acute processes. Chest CTA negative for acute processes. Mild troponin elevation noted at 0.07. Patient was admitted to the hospitalist service for further evaluation and management. Cardiology was brought on board and an echocardiogram was performed which revealed a preserved ejection fraction of 60-65% and mild diastolic dysfunction. Troponins remained adynamic in stable. Cardiology proceeded with a left heart catheter that revealed minimal, nonobstructive CAD with 15% pLAD, 15% mLCx, and 15% pRCA. No interventions as indicated during her calf. For further risk factor shot of medication, patient was started on aspirin, beta jose, and a statin. She was diagnosed likely with a microvascular event/NSTEMI given her mild increase in troponin and her EKG changes. In light of this, she was given a prescription for 1 month of Plavix. She denied chest pain or shortness of breath on day of discharge. She was discharged home in stable condition with close outpatient follow-up recommended. ITS Impressions Chest X-Ray 09/02/16 13:37 IMPRESSION: No acute cardiopulmonary process. Stable chest x-ray. D/ / Rosalva Freeman MD / Rosalva Freeman MD Interpreting Provider: Rosalva Freeman MD Chest CTA 09/02/16 14:38 IMPRESSION: 1. No acute abnormalities are identified in the chest. Specifically, there are no findings of pulmonary embolism. 2. A few incidental findings above. D/ / Alessio Gonzalez MD / Alessio Gonzalez MD Interpreting Provider: Alessio Gonzalez MD Echocardiogram impressions: LVEF 60-65%. Normal LV chamber size, wall thickness and function. Mild left ventricular diastolic dysfunction. Normal left ventricular structure and function. Unable to estimate RVSP due to lack of TR jet. No significant valvular dysfunction. - Time Spent with Patient Total time spent providing and/or coordinating discharge services: - Constitutional Vitals: Temp Pulse Resp BP Pulse Ox 97.7 F 72 16 110/72 96 09/03/16 15:10 09/03/16 15:30 09/03/16 15:30 09/03/16 15:30 09/03/16 15:30 General appearance: Present: A&O X 3, pleasant, no acute distress, answers questions appropriately - Head Head exam: Present: atraumatic, normocephalic - Eye Eye exam: Present: PERRL, conjuntiva pink, sclera anicteric Pupils: Present: PERRL - Neck Neck exam general surgery: Present: supple, trachea midline. Absent: lymphadenopathy - Respiratory Respiratory exam: Present: CTAB. Absent: accessory muscle use, rales, respiratory distress, rhonchi, wheezes - Cardiovascular Cardiovascular exam: Present: RRR, +S1, +S2. Absent: diastolic murmur, gallop, rubs, systolic murmur - GI/Abdominal GI/Abdominal exam: Present: normal bowel sounds, soft, no peritoneal signs. Absent: distended, tenderness - Extremities Exam Extremities exam: Present: warm, radial pulses palpable and symetrical. Absent : calf tenderness, cyanotic, pedal edema - Neurological Exam Neurological exam: Present: alert, CN II-XII intact, normal gait, oriented X3, no focal deficits, strengths equal and symetr throughout. Absent: pronater drift, facial droop, speech deficit - Skin Skin exam: Present: dry, intact, normal color, warm
[2016-09-03 17:33] VITALS: BP 109/65
--- NOTE | 2016-09-09 09:20 | Invasive Diagnostic Lab ---
Name: Kellee Yun Date of Study: 09/03/2016 Date: 1955 Ht: 168.0 cm /66.1 in Medical Record#: [id number] Age: 61 Wt: 65. kg / 143.30 lb Account/Order#: [id number] Gender: Female BSA: 1.74 Order #: [id number] Fluoro Dose: 86 mGy BMI: 23.03 Procedure Physician: Alon Machado MD, FACC Referring MD: Referring MD: Procedures Performed: LEFT HEART CATH Indications: Non-Stemi Impressions: Mild coronary artery disease. The left ventricle is normal and has normal contractility EF 65% Recommendations: Optimal medical therapy of patient's disease. Aggressive risk factor modification. History/Risk Factors: gerd hepatitis Hypertension Procedure Access obtained in the right Radial artery by percutaneous puncture Complications: None, None Contrast: Isovue 50ml Closure Device: Mechanical Compression Hemodynamics: Pressures Site Systolic/ A Wave Diastolic/ V Wave End Diastolic/ Mean HR AO 95 72 83 78 AO 116 24 43 77 AO 131 79 99 76 LV 80 19 27 110 LV 90 1 13 83 AO 85 46 65 82 LV Ventriculography Ejection Method: LV Gram Ejection Fraction: 65% Wall Motion: GARZA Anterobasal Normal Anterolateral Normal Apical: Normal Inferoapical Normal Inferobasal Normal Coronary Dominance: right Lesion Findings/Interventions * Left Main Coronary Artery The LMCA is angiographically free of disease. * Left Anterior Descending There is a 15% stenosis in the Proximal LAD. Mild mid LAD systolic bridging * Circumflex There is a 15% stenosis in the Mid Circumflex. * Right Coronary Artery There is a 15% stenosis in the Proximal RCA. Updated by Nila Christian, RT (R) on 09/03/2016 2:56:07 PM Alon Machado MD, FACC electronically signed on 09/09/2016 9:16:30 AM with status of Final
--- NOTE | 2016-09-15 16:16 | Invasive Diagnostic Lab Proc ---
Name: Kellee Yun Date of Study: 09/03/2016 Date: 1955 Ht: 66.1in Medical Record#: [id number] Age: 61 Wt: 143.30lb Gender: Female BSA: 1.74 Order #: [id number] BMI: 23.03 Physicians Procedure Physician: Alon Machado MD, [facility] Referring MD: Referring MD: Staff Name Position Time In Gisell Vargaslee RT (R) Monitor 02:21 PM Sites, Nila RT (R) Scrub 02:21 PM Linda Rm RN Thermostat Maker 02:21 PM Sites, Nila RT (R) Monitor 02:30 PM Anna Vargas RT (R) Scrub 02:30 PM Linda Rm RN Thermostat Maker 02:30 PM Indications Indication Non-Stemi Procedures Performed Procedure L HRT ARTERY/VENTRICLE ANGIO Pre-Procedure Checklist Informed consent is complete signed and on chart. H\\T\\P is on chart. ID band is on and ID verified with patient. Patient NPO for procedure The procedure was described for the patient and questions were answered. Blood Pressure: 156/102 ECG is on chart. Rhythm: NSR Plan of Care Patient will tolerate the procedure without complications. Adequate level of comfort will be maintained. Hemodynamics will remain stable Patient will recover from procedure without complications. Respiratory function will be maintained. Cardiac rhythm will remain stable. Patient temperature will be maintained. Patient and/or family have verbalized understanding of the procedure. Patient Education Chief Complaint/Reason for Test: Cardiac Cath Developmental Category: Adult (18-64 years) Developmentally Appropriate for Age: Yes Learning Barriers: None Education Needs: Procedure Education Method: Verbal Information Taught: Cardiac Cath Educational Evaluation: Able to repeat information Intravenous Access Time IV Size Location DC'd Fluid/Drip Rate Units RN 18g 1 1/" Patent On Arrival Lt Arm 0.9NaCl 25 ml/hr Linda Rm RN Allergies clavulanic acid Amoxicillin Cortisone SULFA (sulfonamide) clindamycin codeine Imipramine ciprofloxacin Vital Signs Time BP (mmHg) HR (bpm) O2 Sat. RR (bpm) LOC 02:28 PM 156 / 102 61 99 % 16 5 = Fully awake and oriented or at pre-proc level 02:29 PM / % 5 = Fully awake and oriented or at pre-proc level 02:25 PM 156 / 102 62 98 % 17 02:31 PM 114 / 61 67 97 % 15 02:35 PM 118 / 70 71 97 % 12 02:40 PM 114 / 67 77 95 % 11 02:46 PM 132 / 57 74 96 % 22 02:51 PM 127 / 61 70 96 % 16 Procedural Medications Time Medication Dose Units Method Given By 02:28 PM Oxygen 2 L/min nasal cannula Linda Rm RN 02:28 PM Versed 2 mg Intravenous Linda Rm RN 02:28 PM Fentanyl 50 mcg Intravenous Linda Rm RN 02:36 PM Lidocaine 2% 0.5 ml Subcutaneous Alon Machado MD, [facility] 02:38 PM Heparin 4000 units Nitroglycerin 200 mcg Verapamil 2.5 mg Intraarterial Alon Machado MD, [facility] ASA Classification: CLASS II- Mild systemic disease (i.e. well-controlled diabetes, hypertension, asthma, cigarette smoking) Lucretia Score Preprocedure Postprocedure Activity 2- Moves 4 extremities sustained head lift Activity 2- Moves 4 extremities sustained head lift Circulation 2- SBP +/= 20 points of pre-anesthetic level Circulation 2- SBP +/= 20 points of pre-anesthetic level Consciousness 2- Awake and alert oriented x 3 Consciousness 2- Awake and alert oriented x 3 O2 Saturation 2- Able to maintain O2 satruation of 92% on room air O2 Saturation 2- Able to maintain O2 satruation of 92% on room air Respiratory 2- Able to deep breathe and cough well Respiratory 2- Able to deep breathe and cough well Total Score 10 Total Score 10 Contrast Agent: Isovue Diagnostic Contrast: 50 ml Total Contrast: 50 ml Fluoro Dose: 86 mGy Procedure Log Time Note Enter By 02:17 PM 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 well-controlled diabetes, hypertension, asthma, cigarette smoking) [email or web address] 02:21 PM Meet and becca completed [email or web address] 02:21 PM Sign in performed according to hospital policy. [email or web address] 02:21 PM Procedure start 14:21 [email or web address] 02:21 PM Anna Vargas RT (R) Position: Monitor Time in: 14: [email or web address] 02:21 PM Nila Gonzales RT (R) Position: Scrub Time in: 14: [email or web address] 02:21 PM Linda Rm RN Position: Thermostat Maker Time in: 14: [email or web address] 02:21 PM Case Delayed No [email or web address] 02:25 PM CathStat 02:25 PM Vitals capture started with the following parameters, Patient=Adult, Interval=5 min, Initial Grmvyaje=139 mmHg, Deflation Rate=5 mmHg, Cuff placed on Left Arm 02:25 PM Recorded ECG: HR=62 Condition=Condition 1 02:25 PM HR=62 bpm, JKKW=971/102 mmhg, SpO2=98.0 %, Resp=17 B/min 02:28 PM Time: 14:28 Oxygen on at 2 L/min per nasal cannula by Linda Rm RN [email or web address] 02:28 PM Time: 14:28 Versed 2 mg Intravenous Given by Linda Rm RN [email or web address] 02:29 PM Time: 14:28 Fentanyl 50 mcg Intravenous Given by Linda Rm RN [email or web address] 02:29 PM Time: 14:29 Patient comfortable and pain free: Yes [email or web address] 02:29 PM Time: 14:29LOC: 5 = Fully awake and oriented or at pre-proc level [email or web address] 02:29 PM Clinical Presentation: Non-STEMI [email or web address] 02:31 PM HR=67 bpm, UETE=818/61 mmhg, SpO2=97.0 %, Resp=15 B/min 02:35 PM Time out performed according to hospital policy tsites 02:35 PM HR=71 bpm, NUPI=215/70 mmhg, SpO2=97.0 %, Resp=12 B/min 02:37 PM Time: 14:36 0.5 ml Lidocaine 2% to right radial Subcutaneous Given by Alon Machado MD, [facility] tsites 02:37 PM Access obtained by percutaneous puncture. 5Fr 10cm Terumo Glidesheath sheath placed in right Radial artery. [id number] tsites 02:38 PM Time: 14:38 Patient given 4,000 units Heparin, 200 mcg Nitroglycerin, and 2.5 mg Verapamil Intraarterial by Alon Machado MD, [facility] tsites 02:38 PM 5Fr TIG catheter inserted over the wire DN tsites 02:38 PM 0.035 260cm Navilyst 3mmJ wire [id number] tsites 02:38 PM Wire removed tsites 02:39 PM 0.035 260cm Bentson wire [id number] tsites 02:40 PM HR=77 bpm, LDYN=273/67 mmhg, SpO2=95 %, Resp=11 B/min 02:41 PM RCA angiography performed in multiple views. tsites 02:41 PM Recorded Pressure: Ao, HR=78, Condition=Condition 1 (Aorta) Ao 95/72/83 02:41 PM LCA angiography performed in multiple views. tsites 02:41 PM Recorded Pressure: Ao, HR=77, Condition=Condition 1 (Aorta) Ao 116/24/43 02:42 PM Recorded Pressure: Ao, HR=76, Condition=Condition 1 (Aorta) Ao 131/79/99 02:42 PM wire reinserted catheter removed tsites 02:42 PM 5Fr Pigtail catheter inserted over the wire DN tsites 02:46 PM catheter removed tsites 02:46 PM HR=74 bpm, OKJO=234/57 mmhg, SpO2=96.0 %, Resp=22 B/min 02:46 PM 6Fr Pigtail catheter inserted over the wire DN tsites 02:47 PM Recorded Pressure: LV, GJ=556, Condition=Condition 1 (Left Ventricle) LV 80/19/27 02:47 PM Catheter selectively placed in left ventricle tsites 02:47 PM Bolus angiogram of left Ventricle complete: 10 ml/sec for a total of 25 mls tsites 02:48 PM Recorded Pressure: LV, Ao, HR=83, Condition=Condition 1 (Left Ventricle) LV 90/1/13, (Aorta) Ao 85/46/65 02:48 PM Coronary Dominance: right tsites 02:49 PM Lesion found in Proximal LAD. Pre Stenosis: 15 Pre JULIÁN Flow: tsites 02:49 PM Lesion found in Proximal RCA. Pre Stenosis: 15 Pre JULIÁN Flow: tsites 02:49 PM Lesion found in Mid Circumflex. Pre Stenosis: 15 Pre JULIÁN Flow: tsites 02:49 PM Proximal Left Anterior Descending Coronary Artery with 15% stenosis. If graft is supplying this territory, 0 % stenosis. tsites 02:50 PM Circumflex, Obtuse Marginal, Left Posterior Descending, and Left Posterolateral Coronary Arteries with 15 % stenosis. If graft is supplying this area, 0 % stenosis tsites 02:50 PM Right Coronary, Right Posterior Descending Arteries with Right Posterolateral and Acute Marginal branches with 15 % stenosis. If graft is supplying this area, 0 % stenosis tsites 02:50 PM Procedure completed at 14:50 tsites 02:51 PM HR=70 bpm, NHDV=144/61 mmhg, SpO2=96 %, Resp=16 B/min 02:51 PM Sign out completed: Radiation Dose 86 mGy Fluoro Time: 3.6 Isovue 370 - 500ml contrast 50 ml given by Alon Machado MD, [facility]. Complications: NoneCardiac Rehab Consult needed: NoConfirmed administered medications: Yes tsites 02:51 PM Isovue 370 - 500ml,1 Bottle(s) used. tsites 02:51 PM Arterial sheath pulled, Vasc Band closure device used and was Successful S/N. tsites 02:51 PM 11 ml air in Vasc Band. tsites 02:51 PM Post ECG NSR tsites 02:51 PM Post Blood Pressure 127/61 tsites 02:52 PM 14:51 Post Pulses Bilateral DP \\T\\ PT 2+ tsites 02:52 PM Information taught Cardiac Cath and Vasc Band tsites 02:52 PM Education needs Procedure, Plan of Care, and Responsibilities of Patient in Care tsites 02:52 PM Learning barriers :None tsites 02:52 PM Education Methods Verbal tsites 02:52 PM Education evaluation Able to repeat information tsites 02:52 PM Site status No bleeding/hematoma - Rt Wrist as reported by Anna Vargas RT (R) at 14:52 tsites 02:54 PM Report given to [email or web address] STREETER Pt taken to 3B Room #37. 14:53 tsites 02:54 PM Delay to floor No tsites 02:54 PM Patient out of room: 14:54 tsites 02:54 PM Family placed in consult room. tsites 02:54 PM Complications: None tsites Complications Complication None None Hemodynamics Pressures Site Systolic/A Wave Diastolic/V Wave Mean AO 95 72 83 AO 116 24 43 AO 131 79 99 LV 80 19 27 LV 90 1 13 AO 85 46 65 Post Procedure Information Blood Pressure: 127/61 mmHg Rhythm: NSR Post procedural instructions were given Closure Device Time Device Success/Fail 09/03/2016 2:54:00 PM Mechanical Compression Successful Site Checks Time Location Status Staff Sheath In? Note 02:52 PM Rt Wrist No bleeding/hematoma Anna Vargas RT (R) Pulses Time Site Pre-Procedure Post-Procedure Note 09/03/2016 2:28:00 PM Bilateral radial 2+ 2:51:00 PM Bilateral DP \\T\\ PT 2+ Updated by Nila Gonzales RT (R) on 09/03/2016 2:57:45 PM electronically signed on 09/15/2016 4:11:52 PM with status of Final
== END 2016-09-03 19:05 | disposition home or self-care (01) ==
LOC: EMEROO 12:47 → 3BNU 12:47
PROVIDERS: ADMIT Internal Medicine; ATTEND Nurse Practitioner Family

== ENCOUNTER 2017-07-23 09:51 | Observation (INO) ==
[2017-07-23 11:45] LABS: Basophils # 0.1 K/mcL (0.0-0.2); Basophils % 1.2 %; Eosinophils # 0.4 K/mcL (0.0-0.6); Eosinophils % 6.8 %; Hematocrit 36.3 % (35.3-44.9); Hemoglobin 11.7 g/dL (11.5-15.4); Immature Granulocytes % 0.2 % (0-4); Lymphocytes # 1.8 K/mcL (0.6-4.6); Lymphocytes % 30.6 %; Mean Corpuscular HGB Conc 32.2 g/dL (31.6-35.5); Mean Corpuscular Hemoglobin 29.4 pg (28.0-33.3); Mean Corpuscular Volume 91.2 fL (83.0-100.0); Mean Platelet Volume 9.1 fL (9.4-12.4); Monocytes # 0.7 K/mcL (0.0-1.3); Monocytes % 11.7 %; Neutrophils # 2.9 K/mcL (1.6-8.9); Platelet Count 413 K/mcL (140-400); Red Blood Count 3.98 M/mcL (3.82-4.97); Red Cell Distribution Width 12.7 % (11.5-14.5); Segmented Neutrophils % 49.5 %
[2017-07-23] MEDS ORDERED: Aspirin 81 MG TAB.CHEW PO STA (12:03)
[2017-07-23 12:04] LABS: BUN/Creatinine Ratio 6 (6-26); Blood Urea Nitrogen 7 mg/dL (8-23); Calcium 8.8 mg/dL (8.6-10.3); Carbon Dioxide 27 mEq/L (23-29); Chloride 103 mEq/L (98-107); Glucose 89 mg/dL (70-105); Osmolality,Calculated 277 (280-300); Potassium 4.5 mEq/L (3.5-5.1); Sodium 135 mEq/L (136-145); eGFR For African Americans > 60 (> 60); eGFR For Non-African Americans 51 (> 60)
--- NOTE | 2017-07-23 12:07 | Emergency Department Note ---
Disposition Clinical Impression: ACS (acute coronary syndrome) Disposition: Admitted As Inpatient Condition: Good Referrals: Rhys Rausch MD [Primary Care Provider] - Forms: ED Satisfaction Letter Time of Disposition: 12:17 General Adult HPI - General Chief complaint: ED Chest Pain Stated complaint: CP Time Seen by Provider: 07/23/17 11:11 Source: patient Limitations: no limitations Nursing Notes Reviewed: Yes Vital Signs Reviewed: Yes - History of Present Illness HPI Narrative: I examined this patient and my medical decision-making was reviewed with the [employer]/PA/Advanced Practice Nurse/Resident Physician. I agree with the documented findings, disposition and treatment plan as described except to the extent set forth below. ED attending: Patient's emergency medicine resident Dr. Kenneth Russ. Please see copy of this note for H&P evaluation and management and ED disposition. We both had independent [id number] time in contact with this patient. Briefly: 62 year old female presents to the ER referred by her primary care provider for EKG changes and chest pain. Patient had a cardiac catheterization approximately a year ago which was "okay" per patient. Patient noticed for the past 2 months she is having increasing dyspnea on exertion decreased exercise tolerance. Occasional chest pain and pressure without aggravating or alleviating symptoms. Patient was scheduled for an outpatient stress test but that is not for another week. An episode of chest discomfort and decided to come in for further evaluation today. She is pain-free currently. Patient denies fever, chills, vomiting, nausea, diarrhea, dysuria, skin rashes, medication changes, ill contacts, exotic food or recent travel Pain Scale: 5 - Related Data Home Medications Medication Instructions Recorded Confirmed Amitriptyline [Elavil] 25 mg PO HS 06/05/16 09/02/16 DULoxetine [Cymbalta] 30 mg PO DAILY 06/05/16 09/02/16 Estrogens, Conjugated [Premarin 1 appl VG 2XW 06/05/16 09/02/16 Cream] Fluticasone Propionate Nasal 1 spray NS DAILY PRN 06/05/16 09/02/16 [Flonase] Ibuprofen [Motrin] 600 mg PO Q8HR PRN 06/05/16 09/02/16 Omeprazole [PriLOSEC] 40 mg PO QAM 06/05/16 09/02/16 Lisinopril [Zestril] 20 mg PO QAM 09/02/16 09/02/16 Ranitidine HCl [Zantac] 300 mg PO HS 09/02/16 09/02/16 hydrOXYzine pamoate [Hydroxyzine 25 mg PO TID PRN 09/02/16 09/02/16 Pamoate] hydroCHLOROthiazide 25 mg PO QAM 09/02/16 09/02/16 [Hydrochlorothiazide] Previous Rx's Medication Instructions Recorded Aspirin 81 mg PO DAILY #30 tab.chew 09/03/16 Atorvastatin [Lipitor] 40 mg PO HS #30 tablet 09/03/16 Clopidogrel [Plavix] 75 mg PO DAILY #30 tablet 09/03/16 HYDROcodone/Acet 5/325 mg [Tracy 1 tab PO Q6H PRN #15 tab 09/03/16 5-325 mg] Metoprolol [Lopressor] 25 mg PO BID #60 tablet 09/03/16 Ferrous Sulfate [Iron] 325 mg PO BID #60 tablet 05/02/17 Polyethylene Glycol 3350 [MiraLAX 1 scoop PO DAILY #510 gm 05/02/17 Powder Bulk 17.9 Oz] Allergies Allergy/AdvReac Type Severity Reaction Status Date / Time adhesive tape Allergy Rash Verified 07/23/17 10:06 Amoxicillin [From Augmentin] Allergy Headache Verified 07/23/17 10:06 ciprofloxacin [From Cipro] Allergy Nausea Verified 07/23/17 10:06 clavulanic acid Allergy Headache Verified 07/23/17 10:06 [From Augmentin] clindamycin Allergy Nausea Verified 07/23/17 10:06 codeine Allergy Itching Verified 07/23/17 10:06 hydrocortisone Allergy Rash Verified 07/23/17 10:06 [From Cortizone-10] Imipramine [From Tofranil] Allergy Rash Verified 07/23/17 10:06 metronidazole [From Metrogel] Allergy Itching Verified 07/23/17 10:06 Sulfa (Sulfonamide Allergy Rash Verified 07/23/17 10:06 Antibiotics) ultrasound gel Allergy Itching Uncoded 07/23/17 10:06 All systems ED: reviewed and negative except as stated. Constitutional: Reports: weakness Cardiovascular: Reports: chest pain, dyspnea on exertion Past Medical History - Past Medical History Attestation: Yes The following information was validated with the patient. Source: patient Medical history: Reports: arthritis, fibromyalgia, GERD, hepatitis, hypertension , other Surgical history: Reports: cholecystectomy, orthopedic, other, other Psychiatric history: Reports: anxiety, depression - Social History Smoking Status: Never smoker Smokeless Tobacco Status: No Alcohol use: Reports: none Drug use: Reports: none Physical Exam - General Limitations: no limitations General appearance: alert, in no apparent distress - Head Head exam: atraumatic, normocephalic - Eye Eye exam: Present: normal appearance, PERRL - ENT ENT exam: normal exam, normal oropharynx - Neck Neck exam: Present: normal inspection, full ROM - Chest Chest inspection: Present: normal inspection, symmetric chest wall rise - Respiratory Respiratory exam: Present: normal lung sounds bilaterally - Cardiovascular Cardiovascular exam: Present: regular rate, normal rhythm - Abdominal Exam Abdominal exam: Present: soft, Non-Tender - Extremities Exam Extremities exam: Present: normal inspection, full ROM - Expanded Lower Extremity Exam Neurovascular/Tendon exam: Present: normal capillary refill Gait: not tested/not observed - Back Exam Back exam: Present: normal inspection - Neurological Exam Neurological exam: Present: alert, oriented X3, CN II-XII intact - Psychiatric Psychiatric exam: Present: normal affect, normal mood - Skin Skin exam: Present: warm, dry, intact Course - Reevaluation(s) Reevaluation #1: Initial troponin chest x-ray normal labs all within normal limits her baseline. I recommended admission for further observation and stress testing patient and family concur. Hospitalist page in order for admit place. Admission disposition pending. Time: 12:12 Reevaluation #2: Discussed case with the hospitalist Dr. Thornton, patient accepted for admission in stable condition. He requested a GI consult which I placed in the computer Time: 12:17 Vital Signs Temperature 97.8 F 07/23/17 10:01 Pulse Rate 54 07/23/17 10:01 Respiratory Rate 16 07/23/17 10:01 Blood Pressure 107/59 07/23/17 10:01 O2 Sat by Pulse Oximetry 100 07/23/17 10:01 Temperature 97.8 F 07/23/17 10:01 Pulse Rate 54 07/23/17 10:01 Respiratory Rate 16 07/23/17 10:01 Blood Pressure 107/59 07/23/17 10:01 O2 Sat by Pulse Oximetry 100 07/23/17 10:01 Oxygen Delivery Oxygen Delivery Room Air Medical Decision Making - Medical Records Medical records reviewed: Yes I reviewed the patient's medical records. - Lab Data Lab results reviewed: Yes I reviewed the patient's lab results. Result diagrams: 07/23/17 11:40 07/23/17 11:40 Lab Results 07/23/17 07/23/17 07/23/17 Range/Units 11:40 11:40 11:40 WBC 5.9 (4.3-11.1) K/mcL RBC 3.98 (3.82-4.97) M/mcL Hgb 11.7 (11.5-15.4) g/dL Hct 36.3 (35.3-44.9) % MCV 91.2 (83.0-100.0) fL MCH 29.4 (28.0-33.3) pg MCHC 32.2 (31.6-35.5) g/dL RDW 12.7 (11.5-14.5) % Plt Count 413 H (140-400) K/mcL MPV 9.1 L (9.4-12.4) fL Immature Gran % 0.2 (0-4) % Seg Neutrophils % 49.5 % Lymphocytes % 30.6 % Monocytes % 11.7 % Eosinophils % 6.8 % Basophils % 1.2 % Neutrophils # 2.9 (1.6-8.9) K/mcL Lymphocytes # 1.8 (0.6-4.6) K/mcL Monocytes # 0.7 (0.0-1.3) K/mcL Eosinophils # 0.4 (0.0-0.6) K/mcL Basophils # 0.1 (0.0-0.2) K/mcL Sodium 135 L (136-145) mEq/L Potassium 4.5 (3.5-5.1) mEq/L Chloride 103 (98-107) mEq/L Carbon Dioxide 27 (23-29) mEq/L BUN 7 L (8-23) mg/dL Creatinine 1.09 (0.60-1.20) mg/dL Est GFR ( Amer) > 60 (> 60) Est GFR (Non-Af Amer) 51 L (> 60) BUN/Creatinine Ratio 6 (6-26) Glucose 89 (70-105) mg/dL Calculated Osmolality 277 L (280-300) Calcium 8.8 (8.6-10.3) mg/dL Troponin I < 0.03 (< 0.04) ng/mL - Radiology Data Radiology results reviewed: Yes I reviewed the patient's radiology results. - EKG Data EKG #1 EKG attestation: Yes I reviewed and interpreted this EKG. EKG results narrative: 12-lead EKG reviewed with our Cardiologic library clerical assistant shows the following: Sinus bradycardia at 52 bpm, normal CA, QRS, QT corrected. No acute ischemic changes are noted. No acute changes when compared to prior EKG dated 09/02/2016
--- NOTE | 2017-07-23 12:30 | Internal Med History&Physical ---
Date of Encounter: 07/23/17 Time of Encounter: 12:30 Assessment and Plan (1) Unstable angina Current visit: Yes Status: Acute 1. Admit for Obs 2. Trend Cardiac enzymes 3. Continue telemetry 4. Consult cardiology 5. Continue asprin 6. No BB due to mild bradycardia 7. Start statin and order lipid panel 8. Defer further testing to cardiology (2) CAD (coronary artery disease), [place] coronary artery Current visit: Yes Status: Chronic Qualifiers: [place] vs. transplanted heart: [place] heart Associated angina: with unstable angina Qualified Code(s): I25.110 - Atherosclerotic heart disease of [place] coronary artery with unstable angina pectoris (3) STEFFEN (obstructive sleep apnea) Current visit: No Status: Chronic Order CPAP at night (4) Hyperlipidemia Current visit: No Status: Chronic Recheck lipid panel and start statin Qualifiers: Hyperlipidemia type: mixed hyperlipidemia Qualified Code(s): E78.2 - Mixed hyperlipidemia Internal Medicine - H&P: HPI Chief complaint: Chest pain Admitted From: Emergency Dept Plans for Post Hospital Care: Home History of present illness: The patient is a 62 yr old woman who was sent from her PCPs office to the ER this am c/o sharp, nonradiating left-sided chest pains which occur at rest and are unrelieved by NG. She has mild sob when the symptoms occur. She had a NSTEMI followed by cardiac catheterization 08/2016 which showed minimal occlusion (~15%) of the LAD, LCX and RAD and did not require intervention. She takes aspirin (81 mg) daily. She was given aspirin 324 mg x 1 in the ER and placed on a NG drip. Her initial Troponin is wnl (<0.03) and her ECG shows mild sinus graciela without ischemic changes. Her symptoms have been going on intermittently for 2 weeks and are occurring more frequently now. Her symptoms are unprovoked and not relieved by rest. Her most recent Echo (08/2016) showed a nl LVEF (60-65%) with mild LV diastolic dysfunction. At this time she is hemodynamically stable and her presenting symptoms have improved but not entirely resolved. Past Med Surg Social Fam HX - Past Medical History Medical history: arthritis, fibromyalgia, GERD, hepatitis, hypertension, other Psychiatric history: anxiety, depression - Past Surgical History Surgical History: cholecystectomy, orthopedic, other, other - Social History Smoking Status: Never smoker Smokeless Tobacco Status: No Alcohol use: none Drug use: none - Family History Mother Living Status: Still Living Hx Family Cardiac Disorders: Yes (pace maker (irregular heart beat)) Father Living Status: Still Living Hx Family Respiratory Disorders: Yes Hx Family Cancer: Yes (lung cancer) Internal Medicine - H&P: Meds Amitriptyline [Elavil] 25 mg PO HS 06/05/16 [History] DULoxetine [Cymbalta] 30 mg PO DAILY 06/05/16 [History] Estrogens, Conjugated [Premarin Cream] 1 appl VG 2XW 06/05/16 [History] Fluticasone Propionate Nasal [Flonase] 1 spray NS DAILY PRN 06/05/16 [History] Omeprazole [PriLOSEC] 40 mg PO QAM 06/05/16 [History] Lisinopril [Zestril] 20 mg PO QAM 09/02/16 [History] Ranitidine HCl [Zantac] 300 mg PO HS 09/02/16 [History] hydrOXYzine pamoate [Hydroxyzine Pamoate] 25 mg PO TID PRN 09/02/16 [History] hydroCHLOROthiazide [Hydrochlorothiazide] 12.5 mg PO QAM 09/02/16 [History] Aspirin 81 mg PO DAILY #30 tab.chew 09/03/16 [Rx] Metoprolol [Lopressor] 25 mg PO BID #60 tablet 09/03/16 [Rx] Ferrous Sulfate [Iron] 325 mg PO BID #60 tablet 05/02/17 [Rx] Polyethylene Glycol 3350 [MiraLAX Powder Bulk 17.9 Oz] 1 scoop PO DAILY #510 gm 05/02/17 [Rx] Meloxicam 15 mg PO DAILY 07/23/17 [History] Nitroglycerin [Nitrostat] 0.4 mg SL Q5M PRN 07/23/17 [History] Tizanidine HCl 2 mg PO DAILY 07/23/17 [History] 3 Allergy/AdvReac Type Severity Reaction Status Date / Time adhesive tape Allergy Rash Verified 07/23/17 10:06 Amoxicillin [From Augmentin] Allergy Headache Verified 07/23/17 10:06 ciprofloxacin [From Cipro] Allergy Nausea Verified 07/23/17 10:06 clavulanic acid Allergy Headache Verified 07/23/17 10:06 [From Augmentin] clindamycin Allergy Nausea Verified 07/23/17 10:06 codeine Allergy Itching Verified 07/23/17 10:06 hydrocortisone Allergy Rash Verified 07/23/17 10:06 [From Cortizone-10] Imipramine [From Tofranil] Allergy Rash Verified 07/23/17 10:06 metronidazole [From Metrogel] Allergy Itching Verified 07/23/17 10:06 Sulfa (Sulfonamide Allergy Rash Verified 07/23/17 10:06 Antibiotics) ultrasound gel Allergy Itching Uncoded 07/23/17 10:06 All Systems PM: A 10-system review of systems was performed and is negative for pertinent findings except as documented above in the HPI. - Constitutional Constitutional: as per HPI, no chills, no excessive sweating, no fatigue, no fever(s), no falls, no lethargy, no malaise, no night sweats, no weakness, no weight loss - EENT Eyes: no change in vision, no diplopia, no discharge, no pain, no photophobia Ears: no decreased hearing, no ear discharge, no ear pain, no tinnitus Nose, mouth and throat: no dysphagia, no epistaxis, no facial pain, no hoarseness, no nasal discharge, no neck pain, no sore throat - Cardiovascular Cardiovascular ROS IM: chest pain, no claudication, no diaphoresis, no dyspnea, no dyspnea on exertion, no edema, no irregular heart rhythm, no lightheadedness , no palpitations, no paroxysmal nocturnal dyspnea, no syncope - Respiratory Respiratory: no cough, no dyspnea, no wheezing, no excessive phlegm production - Gastrointestinal Gastrointestinal: no abdominal pain, no constipation, no cramping, no diarrhea, no hematemesis, no hematochezia, no melena, no nausea, no vomiting - Genitourinary Genitourinary: no change in urinary stream, no dysuria, no flank pain, no hematuria - Musculoskeletal Musculoskeletal ROS IM: no numbness, no tingling - Integumentary Integumentary IM: no rash, no unusual bruising - Neurological Neurological ROS: no confusion, no convulsions, no focal weakness, no headache(s ), no numbness, no tingling, no tremor(s), no vertigo, no weakness - Endocrine Endocrine IM: no heat intolerance, no polyphagia, no polyuria - Hematologic/Lymphatic Hematologic/Lymphatic: no easy bruising, no lymphadenopathy - Constitutional Vitals: Temp Pulse Resp BP Pulse Ox 97.8 F 54 16 107/59 100 07/23/17 10:01 07/23/17 10:01 07/23/17 10:01 07/23/17 10:01 07/23/17 10:01 General appearance: Present: A&O X 3, no acute distress - Head Head exam: Present: atraumatic, normocephalic - Eye Eye exam: Present: EOMI, PERRL, conjuntiva pink, sclera anicteric. Absent: scleral icterus Pupils: Present: PERRL - Neck Neck exam general surgery: Present: supple, trachea midline. Absent: lymphadenopathy, thyromegaly - Respiratory Respiratory exam: Present: CTAB. Absent: accessory muscle use, rales, rhonchi, stridor, wheezes - Cardiovascular Cardiovascular exam: Present: bradycardia, +S1, +S2. Absent: diastolic murmur, gallop, rubs, systolic murmur - GI/Abdominal GI/Abdominal exam: Present: normal bowel sounds, soft, no peritoneal signs. Absent: distended, rebound, tenderness - Extremities Exam Extremities exam: Present: warm, radial pulses palpable and symmetrical. Absent : calf tenderness, cyanotic, pedal edema - Neurological Exam Neurological exam: Present: CN II-XII intact, oriented X3, no focal deficits. Absent: pronater drift, facial droop, speech deficit - Skin Skin exam: Present: dry, intact, warm. Absent: rash, urticaria Internal Med - H&P Results - Labs CBC & Chem 7: 07/23/17 11:40 07/23/17 11:40 Labs: Short CBC 07/23/17 Range/Units 11:40 WBC 5.9 (4.3-11.1) K/mcL Hgb 11.7 (11.5-15.4) g/dL Hct 36.3 (35.3-44.9) % Plt Count 413 H (140-400) K/mcL Neutrophils # 2.9 (1.6-8.9) K/mcL BMP 07/23/17 11:40 Sodium 135 L Potassium 4.5 Chloride 103 Carbon Dioxide 27 BUN 7 L Creatinine 1.09 Glucose 89 Calcium 8.8 Cardiac Enzymes 07/23/17 Range/Units 11:40 Troponin I < 0.03 (< 0.04) ng/mL - Impressions ITS Impressions Chest X-Ray 07/23/17 10:06 IMPRESSION: No acute cardiopulmonary disease D/ / Thad Naranjo MD / Thad Naranjo MD Interpreting Provider: Thad Naranjo MD
[2017-07-23] MEDS ORDERED: Nitroglycerin 0.4 MG TAB.SUBL SL PRN (12:58)
[2017-07-23] MEDS ORDERED: Fluticasone Propionate Nasal 50 MCG/SPRAY BOTTLE NS PRN (13:06)
[2017-07-23] MEDS ORDERED: hydrOXYzine pamoate 25 MG CAPSULE PO PRN (13:06)
[2017-07-23 14:21] LABS: Prothrombin Time 10.7 Seconds (9.4-12.1)
--- NOTE | 2017-07-23 15:14 | Event Note ---
Date of Encounter: 07/23/17 Time of Encounter: 15:00 - Cardiology Event Note 2017 cath - minimal CAD. Recommend ruling out for DC with serial troponin. Stress test not recommended 2/2 recent cath. Please reconsult if troponin elevated.
[2017-07-23] MEDS: Menthol 9.1 MG LOZENGE PO PRN (16:46)
[2017-07-23] MEDS: Famotidine 20 MG TABLET PO SCH (21:31)
[2017-07-24 06:07] LABS: Basophils # 0.1 K/mcL (0.0-0.2); Eosinophils # 0.3 K/mcL (0.0-0.6); Eosinophils % 6.3 %; Hematocrit 39.9 % (35.3-44.9); Hemoglobin 13.1 g/dL (11.5-15.4); Immature Granulocytes % 0.2 % (0-4); Lymphocytes # 1.5 K/mcL (0.6-4.6); Lymphocytes % 29.7 %; Mean Corpuscular HGB Conc 32.8 g/dL (31.6-35.5); Mean Corpuscular Hemoglobin 29.3 pg (28.0-33.3); Mean Corpuscular Volume 89.3 fL (83.0-100.0); Mean Platelet Volume 9.1 fL (9.4-12.4); Monocytes # 0.5 K/mcL (0.0-1.3); Monocytes % 10.4 %; Neutrophils # 2.7 K/mcL (1.6-8.9); Platelet Count 400 K/mcL (140-400); Red Blood Count 4.47 M/mcL (3.82-4.97); Red Cell Distribution Width 12.8 % (11.5-14.5); Segmented Neutrophils % 52.4 %
[2017-07-24 06:19] LABS: Prothrombin Time 11.2 Seconds (9.4-12.1)
[2017-07-24 06:22] LABS: Activated Partial Thrombo Time 30.8 Seconds (26.0-36.0)
[2017-07-24 06:35] LABS: Alanine Aminotransferase 10 Units/L (7-52); Albumin/Globulin Ratio 1.7 (1.1-2.2); Alkaline Phosphatase 111 Units/L (34-104); Aspartate Amino Transferase 16 Units/L (13-39); BUN/Creatinine Ratio 10 (6-26); Bilirubin,Total 0.3 mg/dL (0.3-1.0); Blood Urea Nitrogen 10 mg/dL (8-23); Calcium 9.2 mg/dL (8.6-10.3); Carbon Dioxide 26 mEq/L (23-29); Chloride 105 mEq/L (98-107); Chol/HDL Ratio 4.2 (0-4.9); Cholesterol 203 mg/dL (< 200); Globulin 2.3 g/dL (2.4-3.5); Glucose 99 mg/dL (70-105); HDL Cholesterol 48 mg/dL (40-59); LDL Cholesterol,Calculated 122 mg/dL (0-99); Magnesium 2.4 mg/dL (1.6-2.6); Osmolality,Calculated 285 (280-300); Potassium 4.4 mEq/L (3.5-5.1); Sodium 138 mEq/L (136-145); Total Protein 6.3 g/dL (6.4-8.9); Triglycerides 164 mg/dL (< 150); eGFR For African Americans > 60 (> 60); eGFR For Non-African Americans 53 (> 60)
--- NOTE | 2017-07-24 06:44 | Electrocardiograph Report ---
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
[2017-07-24] MEDS: Aspirin 81 MG TAB.CHEW PO SCH (09:07)
[2017-07-24] MEDS: Lisinopril 20 MG TABLET PO SCH (09:08)
[2017-07-24] MEDS: hydroCHLOROthiazide 25 MG TABLET PO SCH (09:08)
[2017-07-24] MEDS: tiZANidine 4 MG TABLET PO SCH (09:09)
--- NOTE | 2017-07-24 15:33 | Internal Med Progress Note ---
Date of Encounter: 07/24/17 Time of Encounter: 15:27 - Assessment and plan (1) Shortness of breath Current Visit: No Status: Resolved Assessment and plan: patient reports increasing shortness of breath over the past few weeks. Symptoms worse with exertion, she also reports conversation dyspnea. No known CHF. Adequately oxygenating on room air. Echo, chest CTA pending. (2) CAD (coronary artery disease), [place] coronary artery Current Visit: Yes Status: Chronic Assessment and plan: hx NSTEMI followed by cardiac catheterization 08/2016 which showed minimal occlusion (~15%) of the LAD, LCX and RAD and did not require intervention. EKG without acute ST changes, serial troponins negative. Continue home ASA, statin , no BB due to bradycardia Qualifiers: [place] vs. transplanted heart: [place] heart Associated angina: with unstable angina Qualified Code(s): I25.110 - Atherosclerotic heart disease of [place] coronary artery with unstable angina pectoris (3) HTN (hypertension) Current Visit: No Status: Chronic Assessment and plan: per hx. BP controlled. Continue home BP medication. Monitor BP and titrate PRN Qualifiers: Hypertension type: essential hypertension Qualified Code(s): I10 - Essential (primary) hypertension (4) DVT prophylaxis Current Visit: No Status: Acute Assessment and plan: heparin - Subjective Interval history: Seen and examined at bedside. Patient is new to me, information obtained from chart review and patient report. Patient denies chest pain. She does report shortness of breath, says she gets winded when a few steps and needs to stop to catch breath. Feels she gets winded at times just talking to someone. No cough , no fevers or chills. - Constitutional Vitals: Temp Pulse Resp BP Pulse Ox 98.2 F 82 16 114/70 96 07/24/17 10:23 07/24/17 10:23 07/24/17 10:23 07/24/17 10:23 07/24/17 10:23 General appearance: Present: A&O X 3, no acute distress - Head Head exam: Present: atraumatic, normocephalic - Eye Eye exam: Present: PERRL, conjuntiva pink, sclera anicteric Pupils: Present: PERRL - Neck Neck exam general surgery: Present: supple, trachea midline. Absent: lymphadenopathy - Respiratory Respiratory exam: Present: CTAB, rales. Absent: accessory muscle use, rhonchi, wheezes - Cardiovascular Cardiovascular exam: Present: RRR, +S1, +S2. Absent: diastolic murmur, gallop, rubs, systolic murmur - GI/Abdominal GI/Abdominal exam: Present: normal bowel sounds, soft, no peritoneal signs. Absent: distended, tenderness - Extremities Exam Extremities exam: Present: warm, radial pulses palpable and symmetrical. Absent : calf tenderness, cyanotic, pedal edema - Neurological Exam Neurological exam: Present: CN II-XII intact, oriented X3, no focal deficits. Absent: pronater drift, facial droop, speech deficit - Skin Skin exam: Present: dry, intact Internal Medicine: Result - Labs CBC & Chem 7: 07/24/17 06:00 07/24/17 06:00 Labs: Short CBC 07/24/17 Range/Units 06:00 WBC 5.1 (4.3-11.1) K/mcL Hgb 13.1 (11.5-15.4) g/dL Hct 39.9 (35.3-44.9) % Plt Count 400 (140-400) K/mcL Neutrophils # 2.7 (1.6-8.9) K/mcL BMP 07/24/17 06:00 Sodium 138 Potassium 4.4 Chloride 105 Carbon Dioxide 26 BUN 10 Creatinine 1.05 Glucose 99 Calcium 9.2 Cardiac Enzymes 07/23/17 07/24/17 07/24/17 Range/Units 17:51 00:03 06:00 Troponin I < 0.03 < 0.03 < 0.03 (< 0.04) ng/mL Liver Function 07/24/17 Range/Units 06:00 Total Bilirubin 0.3 (0.3-1.0) mg/dL AST 16 (13-39) Units/L ALT 10 (7-52) Units/L Alkaline Phosphatase 111 H (34-104) Units/L Albumin 4.0 (3.5-5.7) g/dL - ABG Interpretation ABG results: PT/INR, D-dimer PT 11.2 Seconds (9.4-12.1) 07/24/17 06:00 Consult Discharge Plan - Plan Referrals: Rhys Rausch MD [Primary Care Provider] -
--- NOTE | 2017-07-24 17:02 | Gastroenterology Consult Note ---
<Dhiraj Hestern Raúl - Last Filed: 07/24/17 16:59> Date of Encounter: 07/24/17 Time of Encounter: 10:15 - Assessment and plan (1) Chest pain Status: Acute Assessment and plan: 62 year old female with a history of CAD who presents with chest pain. Troponins were negative. She has chronic long-standing GERD. If cardiac workup is negative will see as outpatient and schedule for EGD. Continue omeprazole and zantac. Can increase PPI to BID. Qualifiers: Chest pain type: other chest pain Qualified Code(s): R07.89 - Other chest pain; R07.8 - Other chest pain - Time Spent With Patient Total time spent is greater than 50% in coordination of care (as documented) at patient's floor/unit and/or counseling patient: GI History of Present Illness - Data of Consult Patient: new to practice Consult date: 07/24/17 Requesting Physician: Angella Srivastava CNP - Consult Narrative Reason for consult: chest pain History of present illness: Ms Horton is a 62 year old female with a past medical history of arthritis, fibromyalgia, GERD, and hypertension. She was sent from her PCPs office to the ER with complaints of sharp, nonradiating left-sided chest pains which occur at rest and are unrelieved by NG. She has mild sob when the symptoms occur. She had a NSTEMI followed by cardiac catheterization 08/2016 which showed minimal occlusion (~15%) of the LAD, LCX and RAD and did not require intervention. She takes aspirin (81 mg) daily. She was given aspirin 324 mg x 1 in the ER and placed on a NG drip. Her initial Troponin is wnl (<0.03) and her ECG shows mild sinus graciela without ischemic changes. Her symptoms have been going on intermittently for 2 weeks and are occurring more frequently now. Her symptoms are unprovoked and not relieved by rest. Her most recent Echo (08/2016) showed a LVEF (60-65%) with mild LV diastolic dysfunction. She complains of chronic GERD and is on omeprazole in the am and zantac at night. She denies nausea or vomiting. She has chronic constipation and takes miralax. She denies constipation, bloody or tarry stools. Colonoscopy: 08/01 Dr Krishnan normal colon (repeat in 10 years) EGD: denies NSAIDS/ASA: asa 81 mg, meloxicam Anticoagulants: none Past Med Surg Social Fam HX - Past Medical History Medical history: arthritis, fibromyalgia, GERD, hepatitis, hypertension, other Psychiatric history: anxiety, depression - Past Surgical History Surgical History: cholecystectomy, orthopedic, other, other - Social History Smoking Status: Never smoker Smokeless Tobacco Status: No Alcohol use: none Drug use: none - Family History Mother Living Status: Still Living Hx Family Cardiac Disorders: Yes (pace maker (irregular heart beat)) Father Living Status: Still Living Hx Family Respiratory Disorders: Yes Hx Family Cancer: Yes (lung cancer) Review of Systems: GI: as per ANDREAFSKI GENERAL: denies fever or chills EYES: denies yellow discoloration ENT: denies pain with swallowing or difficulty swallowing CARDIO: see HPI RESP: Shortness of breath with exertion : denies change in color of urine NEURO: denies any weakness HEME: Denies any bruising MS: chronic joint pain. DERM: denies rash or itching - Constitutional Vitals: Temp Pulse Resp BP Pulse Ox 98.6 F 73 16 119/74 96 07/24/17 15:51 07/24/17 15:51 07/24/17 15:51 07/24/17 15:51 07/24/17 15:51 Exam: CONSTITUTIONAL:~alert, no acute distress.~HEAD:~normocephalic.~EYES:~no jaundice.~NECK:~no obvious swelling.~HEART:~regular rate and rhythm, no murmurs. ~LUNGS:~bilateral good air entry.~ABDOMEN:~non distended, soft, non tender, no masses palpable, no organomegaly.~RECTAL EXAM:~Deferred.~EXTREMITIES:~no clubbing, cyanosis or edema.~SKIN:~no stigmata of chronic liver disease.~ NEUROLOGIC:~no obvious focal defect.~~~~ Results - Labs CBC & Chem 7: 07/24/17 06:00 07/24/17 06:00 Labs: Last Result Calcium 9.2 mg/dL (8.6-10.3) 07/24/17 06:00 Troponin I < 0.03 ng/mL (< 0.04) 07/24/17 06:00 Triglycerides 164 mg/dL (< 150) H 07/24/17 06:00 Entire Visit Hgb 13.1 g/dL (11.5-15.4) 07/24/17 06:00 Hct 39.9 % (35.3-44.9) 07/24/17 06:00 PT 11.2 Seconds (9.4-12.1) 07/24/17 06:00 Total Bilirubin 0.3 mg/dL (0.3-1.0) 07/24/17 06:00 AST 16 Units/L (13-39) 07/24/17 06:00 ALT 10 Units/L (7-52) 07/24/17 06:00 - ABG ABG results: PT/INR, D-dimer PT 11.2 Seconds (9.4-12.1) 07/24/17 06:00 Consult Discharge Plan - Plan Instructions: Atorvastatin (By mouth), Coronary Artery Disease (DC), Gastroesophageal Reflux Disease (DC), Hyperlipidemia (DC) Referrals: Rhys Rausch MD [Primary Care Provider] - (Please call your primary care physician within one week for follow-up appointment) New Krishna DO [Partnered Physician] - (Please call cardiology office Thursday to make a follow up appointment.) Alec Lipscomb MD [Partnered Physician] - (Please call office within 1-2 weeks to set up an appointment for an EGD) Prescriptions: Atorvastatin [Lipitor] 40 mg PO HS #30 tablet <Abebe Escobedo - Last Filed: 07/27/17 10:13> Date of Encounter: 07/24/17 - Time Spent With Patient Total time spent is greater than 50% in coordination of care (as documented) at patient's floor/unit and/or counseling patient: GI History of Present Illness - Data of Consult Requesting Physician: Angella Srivastava CNP - Consult Narrative History of present illness: Ms. Yun is a 62 year old female - Constitutional Vitals: Temp Pulse Resp BP Pulse Ox 97.5 F L 85 16 97/63 99 07/25/17 11:31 07/25/17 11:31 07/25/17 11:31 07/25/17 11:31 07/25/17 11:31 Results - Labs CBC & Chem 7: 07/24/17 06:00 07/24/17 06:00 Labs: Last Result Calcium 9.2 mg/dL (8.6-10.3) 07/24/17 06:00 Troponin I < 0.03 ng/mL (< 0.04) 07/24/17 06:00 Triglycerides 164 mg/dL (< 150) H 07/24/17 06:00 Entire Visit Hgb 13.1 g/dL (11.5-15.4) 07/24/17 06:00 Hct 39.9 % (35.3-44.9) 07/24/17 06:00 PT 11.2 Seconds (9.4-12.1) 07/24/17 06:00 Total Bilirubin 0.3 mg/dL (0.3-1.0) 07/24/17 06:00 AST 16 Units/L (13-39) 07/24/17 06:00 ALT 10 Units/L (7-52) 07/24/17 06:00 - ABG ABG results: PT/INR, D-dimer PT 11.2 Seconds (9.4-12.1) 07/24/17 06:00 - Attending Attestation I have personally performed a face to face evaluation on this patient. I have reviewed and agree with the care plan. History and Exam by me shows:
[2017-07-24] MEDS: Menthol 9.1 MG LOZENGE PO PRN (18:14)
[2017-07-24] MEDS: *HR* Heparin 5,000 UNIT/ML VIAL SQ SCH (21:58)
[2017-07-24] MEDS: Famotidine 20 MG TABLET PO SCH (21:58)
[2017-07-25] MEDS: *HR* Heparin 5,000 UNIT/ML VIAL SQ SCH (06:01)
[2017-07-25] MEDS: Aspirin 81 MG TAB.CHEW PO SCH (09:51)
[2017-07-25] MEDS: Lisinopril 20 MG TABLET PO SCH (09:51)
[2017-07-25] MEDS: tiZANidine 4 MG TABLET PO SCH (09:52)
[2017-07-25] MEDS: hydroCHLOROthiazide 25 MG TABLET PO SCH (09:52)
[2017-07-25 11:33] VITALS: BP 97/63
--- NOTE | 2017-07-25 14:07 | Discharge Summary ---
Date of Encounter: 07/25/17 Time of Encounter: 14:08 - Discharge Diagnosis (1) CAD (coronary artery disease), [place] coronary artery Priority: Primary Status: Chronic Comments: hx NSTEMI. 08/2016 LHC showed minimal occlusion (~15%) of the LAD, LCX and RAD and did not require intervention. Presented with CP and reported EKG changes. No acute ST changes noted on EKG serial troponins negative. TTE with EF 60%, indeterminate diastolic dysfunction and no wall motion abnormalities. Chest CTA negative for pulmonary embolism. NM ruled out with serial troponin. Stress test not recommended secondary to recent cath. Continue home ASA, statin , no BB due to bradycardia Qualifiers: [place] vs. transplanted heart: [place] heart Associated angina: with unstable angina Qualified Code(s): I25.110 - Atherosclerotic heart disease of [place] coronary artery with unstable angina pectoris (2) GERD (gastroesophageal reflux disease) Priority: Primary Status: Acute Comments: per hx. possibly contributing to chest discomfort. Evaluated by GI who noted no acute intervention required at this time. Follow-up with GI for outpatient EGD. Continue home PPI Qualifiers: Esophagitis presence: esophagitis presence not specified Qualified Code(s) : K21.9 - Gastro-esophageal reflux disease without esophagitis (3) Hyperlipidemia Priority: Primary Status: Acute Comments: LDL 122; statin initiated Qualifiers: Hyperlipidemia type: mixed hyperlipidemia Qualified Code(s): E78.2 - Mixed hyperlipidemia (4) HTN (hypertension) Priority: Secondary Status: Chronic Comments: per hx. BP controlled. Continue home BP medication. Qualifiers: Hypertension type: essential hypertension Qualified Code(s): I10 - Essential (primary) hypertension - Discharge Medications Prescriptions: Atorvastatin [Lipitor] 40 mg PO HS #30 tablet Home Medications: Amitriptyline [Elavil] 25 mg PO HS 06/05/16 [History] DULoxetine [Cymbalta] 30 mg PO DAILY 06/05/16 [History] Estrogens, Conjugated [Premarin Cream] 1 appl VG 2XW 06/05/16 [History] Fluticasone Propionate Nasal [Flonase] 1 spray NS DAILY PRN 06/05/16 [History] Omeprazole [PriLOSEC] 40 mg PO QAM 06/05/16 [History] Lisinopril [Zestril] 20 mg PO QAM 09/02/16 [History] Ranitidine HCl [Zantac] 300 mg PO HS 09/02/16 [History] hydrOXYzine pamoate [Hydroxyzine Pamoate] 25 mg PO TID PRN 09/02/16 [History] hydroCHLOROthiazide [Hydrochlorothiazide] 12.5 mg PO QAM 09/02/16 [History] Aspirin 81 mg PO DAILY #30 tab.chew 09/03/16 [Rx] Metoprolol [Lopressor] 25 mg PO BID #60 tablet 09/03/16 [Rx] Ferrous Sulfate [Iron] 325 mg PO BID #60 tablet 05/02/17 [Rx] Polyethylene Glycol 3350 [MiraLAX Powder Bulk 17.9 Oz] 1 scoop PO DAILY #510 gm 05/02/17 [Rx] Meloxicam 15 mg PO DAILY 07/23/17 [History] Nitroglycerin [Nitrostat] 0.4 mg SL Q5M PRN 07/23/17 [History] Tizanidine HCl 2 mg PO DAILY 07/23/17 [History] Atorvastatin [Lipitor] 40 mg PO HS #30 tablet 07/25/17 [Rx] Allergies/Adverse Reactions: 3 Allergy/AdvReac Type Severity Reaction Status Date / Time adhesive tape Allergy Rash Verified 07/23/17 10:06 Amoxicillin [From Augmentin] Allergy Headache Verified 07/23/17 10:06 ciprofloxacin [From Cipro] Allergy Nausea Verified 07/23/17 10:06 clavulanic acid Allergy Headache Verified 07/23/17 10:06 [From Augmentin] clindamycin Allergy Nausea Verified 07/23/17 10:06 codeine Allergy Itching Verified 07/23/17 10:06 hydrocortisone Allergy Rash Verified 07/23/17 10:06 [From Cortizone-10] Imipramine [From Tofranil] Allergy Rash Verified 07/23/17 10:06 metronidazole [From Metrogel] Allergy Itching Verified 07/23/17 10:06 Sulfa (Sulfonamide Allergy Rash Verified 07/23/17 10:06 Antibiotics) ultrasound gel Allergy Itching Uncoded 07/23/17 10:06 Procedures/tests Complete & Pending: Procedures Performed prior 72 hours Category Date Time Status CTA chest [CT angio chest] [CT] Routine Cat Scan 07/24/17 16:30 Completed EV echocardiogram Routine Y 07/24/17 15:25 Completed Date of admission: 07/23/17 12:22 Primary care physician: Rhys Rausch MD Discharging clinician: Angella Srivastava Anticipated date of discharge: 07/25/17 - Patient Status Disposition: Home, Self-Care Condition: Good Functional capacity at discharge: independent ambulation Overall status at discharge: patient is back to baseline - Discharge Instructions Instructions: Coronary Artery Disease (DC), Gastroesophageal Reflux Disease (DC ), Hyperlipidemia (DC), Atorvastatin (By mouth) Follow Up With: Rhys Rausch MD [Primary Care Provider] - (Please call your primary care physician within one week for follow-up appointment) Alec Lipscomb MD [Partnered Physician] - (Please call office within 1-2 weeks to set up an appointment for an EGD) Interval History: Seen and at bedside. Patient said she had an uneventful night but started having recurrent chest pain under left breast. She described as a twinging sensation, no radiation. No aggravating or alleviating factors. EKG without acute ST changes. Offered inpatient cardiology consultation however patient declined. Says she will follow up outpatient. Patient advised to return to the ER if chest pain worsened or persisted. She verbalized understanding. Hospital course: Ms. Yun is a 62 year old female - Time Spent with Patient Total time spent providing and/or coordinating discharge services: - Constitutional Vitals: Temp Pulse Resp BP Pulse Ox 97.5 F L 85 16 97/63 99 07/25/17 11:31 07/25/17 11:31 07/25/17 11:31 07/25/17 11:31 07/25/17 11:31 General appearance: Present: A&O X 3, no acute distress - Head Head exam: Present: atraumatic, normocephalic - Eye Eye exam: Present: PERRL, conjuntiva pink, sclera anicteric Pupils: Present: PERRL - Neck Neck exam general surgery: Present: supple, trachea midline. Absent: lymphadenopathy - Respiratory Respiratory exam: Present: CTAB. Absent: accessory muscle use, rales, rhonchi, wheezes - Cardiovascular Cardiovascular exam: Present: RRR, +S1, +S2. Absent: diastolic murmur, gallop, rubs, systolic murmur - GI/Abdominal GI/Abdominal exam: Present: normal bowel sounds, soft, no peritoneal signs. Absent: distended, tenderness - Extremities Exam Extremities exam: Present: warm, radial pulses palpable and symmetrical. Absent : calf tenderness, cyanotic, pedal edema - Neurological Exam Neurological exam: Present: CN II-XII intact, oriented X3, no focal deficits. Absent: pronater drift, facial droop, speech deficit - Skin Skin exam: Present: dry, intact
[2017-07-27] MEDS ORDERED: Estrogens, Conjugated CREAM 30 GM TUBE VG SCH (09:00)
--- NOTE | 2017-07-27 16:34 | Electrocardiograph Report ---
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
== END 2017-07-25 14:46 | disposition home or self-care (01) ==
LOC: 3BNU 09:51 → EMEROO 09:51 → 3BNU 13:13
PROVIDERS: ADMIT Internal Medicine Cardiovascular Disease; ATTEND Registered Nurse

== ENCOUNTER 2020-12-08 09:35 | Observation (INO) ==
[2020-12-08] MEDS ORDERED: Isovue-370 500 ML BOTTLE IVP ONE (10:13)
[2020-12-08 10:24] LABS: Hemoglobin 12.4 g/dL (11.5-15.4); Mean Corpuscular HGB Conc 31.8 g/dL (31.6-35.5); Mean Corpuscular Hemoglobin 30.2 pg (28.0-33.3); Mean Corpuscular Volume 94.9 fL (83.0-100.0); Mean Platelet Volume 9.4 fL (9.4-12.4); Platelet Count 364 K/mcL (140-400); Red Blood Count 4.11 M/mcL (3.82-4.97); White Blood Count 6.2 K/mcL (4.3-11.1)
[2020-12-08 10:40] LABS: Prothrombin Time 11.7 Seconds (9.4-12.1)
[2020-12-08 10:43] LABS: Activated Partial Thrombo Time 30.9 Seconds (26.0-36.0)
[2020-12-08 10:47] LABS: Alanine Aminotransferase 12 Units/L (7-52); Albumin 4.3 g/dL (3.5-5.7); Albumin/Globulin Ratio 1.8 (1.1-2.2); Alkaline Phosphatase 98 Units/L (34-104); Aspartate Amino Transferase 14 Units/L (13-39); BUN/Creatinine Ratio 9 (6-26); Bilirubin,Total 0.4 mg/dL (0.3-1.0); Blood Urea Nitrogen 9 mg/dL (8-23); Calcium 9.2 mg/dL (8.6-10.3); Carbon Dioxide 26 mEq/L (23-29); Chloride 107 mEq/L (98-107); Globulin 2.4 g/dL (2.4-3.5); Glucose 76 mg/dL (70-105); Osmolality,Calculated 287 (280-300); Potassium 4.2 mEq/L (3.5-5.1); Sodium 140 mEq/L (136-145); Total Protein 6.7 g/dL (6.4-8.9); Troponin I < 0.03 ng/mL (< 0.04); eGFR For African Americans > 60 (> 60); eGFR For Non-African Americans 56 (> 60)
[2020-12-08] MEDS ORDERED: Naloxone 0.4 MG/ML INJ IVP PRN (13:02)
[2020-12-08] MEDS ORDERED: Ondansetron 4 MG/2 ML VIAL IVP PRN (13:02)
[2020-12-08] MEDS ORDERED: D5% in Water 1,000 ML IVC PRN (13:11)
[2020-12-08] MEDS ORDERED: Dextrose Gel 15 GM/37.5 ML TUBE PO PRN ×2 (13:11)
[2020-12-08] MEDS ORDERED: *HR* Dextrose 50 % in Water (Vial) 50 ML VIAL IVP PRN (13:11)
[2020-12-08] MEDS: Insulin LISPRO 300 UNITS/3 ML VIAL SUBQ SCH (14:29)
[2020-12-08] MEDS: Furosemide 20 MG/2 ML VIAL IVP SCH ×2 (15:15→15:38)
[2020-12-08] MEDS ORDERED: ALPRAZolam 0.25 MG TABLET PO PRN (15:52)
[2020-12-08] MEDS ORDERED: Nitroglycerin 0.4 MG TAB.SUBL SL PRN (15:52)
[2020-12-08] MEDS ORDERED: hydrOXYzine pamoate 25 MG CAPSULE PO PRN (15:52)
[2020-12-08] MEDS ORDERED: tiZANidine 4 MG TABLET PO PRN (16:02)
[2020-12-08] MEDS: *HR* Heparin 5,000 UNIT/ML VIAL SQ SCH (17:52)
[2020-12-08] MEDS ORDERED: Acetaminophen 325 MG TABLET PO PRN (23:10)
[2020-12-09] MEDS: *HR* Heparin 5,000 UNIT/ML VIAL SQ SCH (05:23)
[2020-12-09 05:34] LABS: Basophils # 0.1 K/mcL (0.0-0.2); Eosinophils # 0.4 K/mcL (0.0-0.6); Eosinophils % 5.8 %; Hematocrit 38.4 % (35.3-44.9); Hemoglobin 12.6 g/dL (11.5-15.4); Immature Granulocytes % 0.2 % (0-4); Lymphocytes # 2.1 K/mcL (0.6-4.6); Lymphocytes % 35.4 %; Mean Corpuscular HGB Conc 32.8 g/dL (31.6-35.5); Mean Corpuscular Hemoglobin 30.3 pg (28.0-33.3); Mean Corpuscular Volume 92.3 fL (83.0-100.0); Mean Platelet Volume 9.4 fL (9.4-12.4); Monocytes # 0.5 K/mcL (0.0-1.3); Monocytes % 8.6 %; Platelet Count 338 K/mcL (140-400); Red Blood Count 4.16 M/mcL (3.82-4.97); Red Cell Distribution Width 12.8 % (11.5-14.5)
[2020-12-09 05:53] LABS: BUN/Creatinine Ratio 14 (6-26); Blood Urea Nitrogen 14 mg/dL (8-23); Calcium 9.1 mg/dL (8.6-10.3); Carbon Dioxide 29 mEq/L (23-29); Chloride 105 mEq/L (98-107); Glucose 103 mg/dL (70-105); Magnesium 2.3 mg/dL (1.6-2.6); Osmolality,Calculated 291 (280-300); Phosphorous 5.3 mg/dL (2.7-4.5); Potassium 3.9 mEq/L (3.5-5.1); Sodium 140 mEq/L (136-145); eGFR For African Americans > 60 (> 60); eGFR For Non-African Americans 55 (> 60)
[2020-12-09 07:00] VITALS: BP 101/64
[2020-12-09] MEDS: Insulin LISPRO 300 UNITS/3 ML VIAL SUBQ SCH (07:16)
[2020-12-09] MEDS ORDERED: Aspirin Enteric Coated 81 MG Tablet PO SCH (09:00)
== END 2020-12-09 09:39 | disposition home or self-care (01) ==
LOC: EMEROOARM 09:35 → 3BNU 09:35
PROVIDERS: ADMIT Internal Medicine; ATTEND Internal Medicine